=== PATIENT | male | born 1945 ===

== ENCOUNTER 2024-12-12 09:27 | Inpatient (IN) | payer MEDICARE, SELFPAY ==
[2024-12-12] VITALS (14 sets, daily range): BP systolic 109–140; BP diastolic 62–95; PULSE 53–100; RESP 14–30; TEMP 36.2–38.6; O2SAT 88–98; BMI 28.5
--- NOTE | ~2024-12-12 | XR_ITS ---
EXAMINATION: XR CHEST 2 VIEWS HISTORY: altered mental status COMPARISON: There are no prior studies for comparison. FINDINGS: AP and lateral views of the chest are submitted. The lungs are expanded and clear. There is no pleural effusion, pneumothorax, or pulmonary vascular congestion. The heart is normal in size. There is mild degenerative disc disease of the spine. XR/XR chest 2V IMPRESSION: Clear lungs. Electronically signed by: Marbin Harrison MD 12/12/2024 10:43 AM [facility]
--- NOTE | ~2024-12-12 | CT_ITS ---
EXAMINATION: CT HEAD WITHOUT CONTRAST CLINICAL INFORMATION: AMS COMPARISON: None available. TECHNIQUE: Contiguous axial imaging was performed from the skull base to vertex without intravenous administration of contrast. This CT examination was performed using dose optimization techniques as appropriate, variously including the following: *Automated exposure control *Adjustment of mA and/or kV according to patient size (this includes techniques or standardized protocols for targeted exams where dose is matched to indication/reason for exam; i.e. extremities or head) *Use of iterative reconstruction technique DLP: 751 mGy-cm FINDINGS: No acute intracranial hemorrhage, mass effect, midline shift, hydrocephalus or herniation. Meraz-white matter differentiation is normal. Prominence of the extra-axial CSF spaces cerebral sulci and ventricles likely central volume loss. Sellar/suprasellar region demonstrated no gross masses. Craniocervical junction is intact. Posterior cranial fossa contents demonstrated no acute intracranial hemorrhage or mass effect. Old lacunar infarcts in the basal ganglia. Mild patchy deep periventricular white matter hypodensities in the centrum semiovale and henao radiata. Calcified plaques in the cavernous segments both ICAs. The bony calvarium is intact. There is a polypoid mucosal thickening, right maxillary sinus and right ethmoid air cells.. Small retention cysts versus polyp in the right sphenoid sinus. Tympanic cavities and mastoid air cells are aerated. No gross masses or fluid collections in the intraconal or extraconal compartments of the orbits. CT/CT head/brain wo IV con IMPRESSION: No acute intracranial hemorrhage. Global cerebral atrophy. Small vessel occlusive disease. Acute stroke/nonhemorrhagic ischemia cannot be excluded. If clinical concern recommend non-IV contrast MRI brain. Polypoid right-sided paranasal sinus disease. Electronically signed by: Brayden Krishnamurthy MD 12/12/2024 11:05 AM EST
--- NOTE | 2024-12-12 09:35 | ED_ITS ---
HPI - General Adult General Chief complaint: Altered Mental Status Stated complaint: ALTERED,WARM,?UTI FROM CORRECTION PER EMS Time Seen by Provider: 12/12/24 09:34 Source: patient, EMS, RN notes reviewed and old records reviewed Mode of arrival: EMS Limitations: altered mental status History of Present Illness ED Provider: Edy GRULLON narrative: Patient is a 79-year-old male with history of schizoaffective disorder, bipolar disorder, PTSD, hypothyroidism presenting to the ED via EMS for reported weakness, confusion, and inability to stand. EMS noted foul smelling urine, and that patient felt warm to touch. Patient denies any complaints but is poor historian. MD complaint: weakness Treatments prior to arrival: none Related Data Allergies Allergy/AdvReac Type Severity Reaction Status Date / Time No Known Allergies Allergy Verified 12/12/24 09:50 Review of Systems 2 Review of Systems: As per HPI Yes all other systems are reviewed and are negative Constitutional: Constitutional: Reports as per HPI Neurologic: Reports confusion Psychiatric: Psychiatric: Reports confusion PMFSH Social History Social History Advance Directives: No Advance Directives Information Provided: Yes Physical Exam ED Vital Signs: Vital Signs - 24 hr 12/12/24 09:41 12/12/24 09:47 12/12/24 10:12 Temperature 101.3 F H 101.5 F H Pulse Rate 81 78 Respiratory Rate 30 H 16 Blood Pressure 113/72 126/86 Pulse Oximetry 93 93 Oxygen Delivery Method Room Air Room Air 12/12/24 12:00 12/12/24 12:15 12/12/24 12:46 Temperature 98.8 F 98.9 F 98.3 F Pulse Rate 72 75 62 Respiratory Rate 24 H 15 20 Blood Pressure 126/88 132/88 109/73 Pulse Oximetry 95 96 95 Oxygen Delivery Method Room Air Room Air Room Air 12/12/24 13:02 12/12/24 13:11 Temperature 97.5 F Pulse Rate 66 61 Respiratory Rate 22 H Blood Pressure 113/75 Pulse Oximetry 88 L 97 Oxygen Delivery Method Room Air Room Air BMI result Body Mass Index 28.5 Vital signs have been reviewed and appear to be correct. Blood pressure normal. Heart rate normal. Respiratory rate normal. Temperature febrile. Oxygen saturation slightly hypoxic on room air. Const General: cooperative, no acute distress, alert, awake and confusion Orientation/consciousness: oriented to person, oriented to place, oriented to time, patient oriented x3, confusion and Other orientation findings Limitations: altered mental status HENMT Head: Yes normocephalic and Yes atraumatic Ears: external ears normal General nose exam: Normal external nose present Face and sinus: Yes face symmetric Mouth: oropharynx normal and moist mucous membranes Throat: Yes uvula midline Eyes Pupils: Equal, round and reactive pupils present Neck Neck: Yes normal visual inspection and Yes supple Resp Effort & Inspection: normal respiratory effort and able to speak in complete sentences Auscultation: clear to auscultation bilaterally Cardio Rate: regular rate Rhythm: regular rhythm Heart sounds: S1 normal heart sound present and S2 normal heart sound present GI Palpation (GI): Soft to palpation and nontender Auscultation: normoactive bowel sounds General: Yes no CVA tenderness Back/Spine/Pelvis Back: no CVA tenderness Skin General skin exam: elasticity normal and turgor normal Neuro General: oriented to person, oriented to place, oriented to time, patient oriented x3, moves all extremities, no focal motor deficits, CN's II-XI intact bilaterally and confusion Cranial nerves: Yes Equal, round and reactive pupils present Cognition (Neuro): normal cognition Extrem General: Yes full ROM, Yes no pedal edema and Yes no calf tenderness Psych Mental Status: mental status grossly normal Affect: normal affect Thought process: Flight of ideas present Medications Administered Discontinued Medications Generic Name Dose Route Start Last Admin Trade Name Prestonq PRN Reason Stop Dose Admin Acetaminophen 650 mg 12/12/24 11:18 12/12/24 11:35 Acetaminophen 325 Mg Tablet PO 12/12/24 11:19 650 mg ONCE ONE Administration Ceftriaxone Sodium 1 gm 12/12/24 09:48 12/12/24 10:01 Ceftriaxone Sodium 1 Gm Vial IVPUSH 12/12/24 09:49 1 gm ONCE ONE Administration Dexamethasone Sodium Phosphate 6 mg 12/12/24 11:18 12/12/24 11:35 Dexamethasone Sod Phosphate 4 Mg/Ml Vial IVPUSH 12/12/24 11:19 6 mg ONCE ONE Administration Lactated Ringer's 1,000 mls @ 999 mls/hr 12/12/24 11:30 12/12/24 12:45 Lr IV 12/12/24 12:30 Infused .Q1H1M ALTON Infusion Medical Decision Making Medical Decision Making MDM Narrative: Patient is a 79-year-old male with history of schizoaffective disorder, bipolar disorder, PTSD, hypothyroidism presenting to the ED via EMS for reported weakness, confusion, and inability to stand. On exam patient is awake, A+Ox3, VS WNL, febrile, physical exam findings as above. Given reported symptoms and physical exam findings, initial differential includes but is not limited to UTI, viral illness, covid, flu, pneumonia, electrolyte abnormality. Less likely CVA/ICH but will obtain CT head. Viral serology positive for Covid. Labs notable for slight leukocytosis, elevated lactic, no significant electrolyte abnormalities, slightly elevated troponin, will obtain repeat. CT head notable for no acute ICH, small vessel occlusive disease. Low suspicion for stroke, no focal neurological deficits. CXR notable for no evidence of pneumonia. My interpretation is in agreement with the radiologist's interpretation. Patient maintaining oxygen saturation on room air. Will reassess need for admission after repeat lactic and troponin. No delta on repeat troponin, repeat lactic 2. Case discussed with Dr. Owens who accepts admission. Differential Diagnosis Differential Diagnoses: The differential diagnosis associated with the presentation includes As per [facility] Admission/Observation Consideration of admission/observation: Escalation of care including admission/observation considered Lab Data [facility] Lab Attestation statement: I reviewed the patient's lab results. As per [facility] 12/12/24 09:57 12/12/24 09:59 Labs: Lab Results 12/12/24 12/12/24 12/12/24 Range/Units 09:57 09:59 10:13 WBC 10.9 H (4.8-10.8) X10*3/uL RBC 3.82 L (4.60-5.80) X10*6/uL Hgb 12.6 L (14.0-18.0) g/dl Hct 35.6 L (42.0-52.0) % MCV 93.2 (80.0-98.0) fL MCH 33.0 (27.0-33.0) pg MCHC 35.4 (31.0-36.0) g/dl RDW 13.2 (11.0-16.0) % Plt Count 187 (160-400) X10*3/uL MPV 10.6 (9.4-12.4) fL Immature Gran % (Auto) 0.5 H (0.0-0.4) % Neut % (Auto) 71.1 (45-73) % Lymph % (Auto) 13.8 L (20-40) % Conway % (Auto) 13.1 H (2-11) % Eos % (Auto) 0.5 (0-4) % Baso % (Auto) 1.0 (0-2) % Lymph # (Auto) 1.5 (1.2-4.9) X10*3/uL Conway # (Auto) 1.4 H (0.1-1.2) X10*3/uL Eos # (Auto) 0.1 (0.0-0.4) X10*3/uL Baso # (Auto) 0.1 (0.0-0.2) X10*3/uL Abs Immat Gran (auto) 0.06 H (0.00-0.03) X10*3/uL Absolute Neuts (auto) 7.7 (2.0-8.3) x10*3/uL Absolute Nucleated RBC 0.000 (0.0-0.012) X10*3/uL Nucleated RBC % (auto) 0.0 (0.0-0.2) /100WBC PT 11.9 (10.9-12.4) SEC INR 1.0 (0.9-1.1) Sodium 140 (135-145) mmol/L Potassium 4.7 (3.3-5.1) mmol/L Chloride 110 H (96-108) mmol/L Carbon Dioxide 22 (22-29) mmol/L Anion Gap 13 (12-20) BUN 17 H (9-16) mg/dL Creatinine 1.08 (0.5-1.4) mg/dL Estim Creat Clear Calc 64.6 Estimated GFR > 60 Random Glucose 126 H (60-115) mg/dL Lactic Acid 2.5 H* (0.5-2.0) mmol/L Lactic Acid F/U @ 2Hr (0.5-2.0) mmol/L Calcium 8.7 (8.4-10.2) mg/dL Magnesium 1.7 (1.6-2.6) mg/dL Total Bilirubin 0.3 (0.0-1.0) mg/dL AST 62 H (5-37) U/L ALT 23 (0-40) U/L Alkaline Phosphatase 54 (39-117) U/L Troponin I High Sens 13.7 (<3.5-35.0) ng/L Total Protein 7.4 (6.5-8.0) g/dL Albumin 3.5 (3.5-5.0) g/dL Urine Color Yellow Urine Appearance Clear Urine pH 7.0 (5.0-9.0) Ur Specific [place] 1.015 (1.005-1.025) Urine Protein Trace (Neg-Trace) mg/dL Urine Glucose (UA) Negative (Negative) mg/dL Urine Ketones Negative (Negative) mg/dL Urine Blood Negative (Negative) Urine Nitrite Negative (Negative) Ur Leukocyte Esterase Negative (Negative) Urine Opiates Screen Not Detected (Not Detect) Ur Buprenorphine Scrn Not Detected (Not Detect) ng/mL Ur Oxycodone Screen Not Detected (Not Detect) ng/mL Urine Methadone Screen Not Detected (Not Detect) ng/mL Urine Fentanyl Screen Not Detected (Not Detect) Ur Barbiturates Screen Not Detected (Not Detect) Ur Phencyclidine Scrn Not Detected (Not Detect) Ur Amphetamines Screen Not Detected (Not Detect) U Benzodiazepines Scrn Not Detected (Not Detect) Urine Cocaine Screen Not Detected (Not Detect) U Marijuana (THC) Screen Not Detected (Not Detect) Ethyl Alcohol < 10 mg/dL Influenza Type A (PCR) NEGATIVE (Negative) Influenza Type B (PCR) NEGATIVE (Negative) RSV RNA Qual (PCR) NEGATIVE (Negative) SARS-CoV-2 RNA (RT-PCR) POSITIVE A (Negative) 12/12/24 Range/Units 12:16 WBC (4.8-10.8) X10*3/uL RBC (4.60-5.80) X10*6/uL Hgb (14.0-18.0) g/dl Hct (42.0-52.0) % MCV (80.0-98.0) fL MCH (27.0-33.0) pg MCHC (31.0-36.0) g/dl RDW (11.0-16.0) % Plt Count (160-400) X10*3/uL MPV (9.4-12.4) fL Immature Gran % (Auto) (0.0-0.4) % Neut % (Auto) (45-73) % Lymph % (Auto) (20-40) % Conway % (Auto) (2-11) % Eos % (Auto) (0-4) % Baso % (Auto) (0-2) % Lymph # (Auto) (1.2-4.9) X10*3/uL Conway # (Auto) (0.1-1.2) X10*3/uL Eos # (Auto) (0.0-0.4) X10*3/uL Baso # (Auto) (0.0-0.2) X10*3/uL Abs Immat Gran (auto) (0.00-0.03) X10*3/uL Absolute Neuts (auto) (2.0-8.3) x10*3/uL Absolute Nucleated RBC (0.0-0.012) X10*3/uL Nucleated RBC % (auto) (0.0-0.2) /100WBC PT (10.9-12.4) SEC INR (0.9-1.1) Sodium (135-145) mmol/L Potassium (3.3-5.1) mmol/L Chloride (96-108) mmol/L Carbon Dioxide (22-29) mmol/L Anion Gap (12-20) BUN (9-16) mg/dL Creatinine (0.5-1.4) mg/dL Estim Creat Clear Calc Estimated GFR Random Glucose (60-115) mg/dL Lactic Acid (0.5-2.0) mmol/L Lactic Acid F/U @ 2Hr 2.0 (0.5-2.0) mmol/L Calcium (8.4-10.2) mg/dL Magnesium (1.6-2.6) mg/dL Total Bilirubin (0.0-1.0) mg/dL AST (5-37) U/L ALT (0-40) U/L Alkaline Phosphatase (39-117) U/L Troponin I High Sens 17.0 (<3.5-35.0) ng/L Total Protein (6.5-8.0) g/dL Albumin (3.5-5.0) g/dL Urine Color Urine Appearance Urine pH (5.0-9.0) Ur Specific [place] (1.005-1.025) Urine Protein (Neg-Trace) mg/dL Urine Glucose (UA) (Negative) mg/dL Urine Ketones (Negative) mg/dL Urine Blood (Negative) Urine Nitrite (Negative) Ur Leukocyte Esterase (Negative) Urine Opiates Screen (Not Detect) Ur Buprenorphine Scrn (Not Detect) ng/mL Ur Oxycodone Screen (Not Detect) ng/mL Urine Methadone Screen (Not Detect) ng/mL Urine Fentanyl Screen (Not Detect) Ur Barbiturates Screen (Not Detect) Ur Phencyclidine Scrn (Not Detect) Ur Amphetamines Screen (Not Detect) U Benzodiazepines Scrn (Not Detect) Urine Cocaine Screen (Not Detect) U Marijuana (THC) Screen (Not Detect) Ethyl Alcohol mg/dL Influenza Type A (PCR) (Negative) Influenza Type B (PCR) (Negative) RSV RNA Qual (PCR) (Negative) SARS-CoV-2 RNA (RT-PCR) (Negative) Independent Interpretation I performed an independent interpretation of an: Plain X-Ray and CT Scan Interpretation: CT head notable for no acute ICH, small vessel occlusive disease. Low suspicion for stroke, no focal neurological deficits. CXR notable for no evidence of pneumonia. Radiology Impression Discussion of test interpretation with radiology: I have reviewed the radiologist's reading. Radiologist Impression: XR/XR chest 2V IMPRESSION: Clear lungs. CT/CT head/brain wo IV con IMPRESSION: No acute intracranial hemorrhage. Global cerebral atrophy. Small vessel occlusive disease. Acute stroke/nonhemorrhagic ischemia cannot be excluded. If clinical concern recommend non-IV contrast MRI brain. Polypoid right-sided paranasal sinus disease. External Record Review External record reviewed: Inpatient record, Office record and Outpatient record Prescription Management I considered prescription management with: Other Discharge Plan Discharge Patient Disposition: Admitted As Inpatient Print Language: Ukrainian
--- NOTE | 2024-12-12 09:36 | ECG_ITS ---
Test Reason : alt mental status Blood Pressure : */* mmHG Vent. Rate : 76 BPM Atrial Rate : 76 BPM P-R Int : 136 ms QRS Dur : 92 ms QT Int : 378 ms P-R-T Axes : 36 -32 17 degrees QTcB Int : 425 ms Normal sinus rhythm Left axis deviation Inferior infarct , age undetermined Abnormal ECG No previous ECGs available Referred By: Noemi Snow Electronically Signed By: EMMANUEL CASTANEDA MD
[2024-12-12] MEDS: cefTRIAXone sodium 1 GM VIAL IVPUSH (10:01)
[2024-12-12 10:03] LABS: MANUAL DIFF FLAG NO
--- NOTE | 2024-12-12 10:03 | PC.NURSE ---
Per Noemi JOSHI, defer on IVF at this time. Awaiting lactic prior to fluid administration.
[2024-12-12 10:08] LABS: Basophils Absolute Auto 0.1 X10*3/uL (0.0-0.2); Eosinophils Absolute Auto 0.1 X10*3/uL (0.0-0.4); Eosinophils Percent Auto 0.5 % (0-4); Hematocrit 35.6 % (42.0-52.0); Hemoglobin 12.6 g/dl (14.0-18.0); Imm Gran Abs Auto 0.06 X10*3/uL (0.00-0.03); Imm Gran Pct Auto 0.5 % (0.0-0.4); Lymphocytes Absolute Auto 1.5 X10*3/uL (1.2-4.9); Lymphocytes Percent Auto 13.8 % (20-40); Mean Corpuscular HGB Conc 35.4 g/dl (31.0-36.0); Mean Corpuscular Volume 93.2 fL (80.0-98.0); Mean Platelet Volume 10.6 fL (9.4-12.4); Monocytes Absolute Auto 1.4 X10*3/uL (0.1-1.2); Monocytes Percent Auto 13.1 % (2-11); Neutrophils Absolute Auto 7.7 x10*3/uL (2.0-8.3); Neutrophils Percent Auto 71.1 % (45-73); Platelet Count 187 X10*3/uL (160-400); Red Blood Count 3.82 X10*6/uL (4.60-5.80); Red Cell Distribution Width 13.2 % (11.0-16.0); White Blood Count 10.9 X10*3/uL (4.8-10.8)
--- NOTE | 2024-12-12 10:12 | PC.NURSE ---
Pt straight catheterized for urine sample, tolerated well.
[2024-12-12 10:18] LABS: Prothrombin Time 11.9 SEC (10.9-12.4)
[2024-12-12 10:23] LABS: Ethanol < 10 mg/dL
[2024-12-12 10:26] LABS: Lactic Acid 2.5 mmol/L (0.5-2.0)
[2024-12-12 10:27] LABS: Appearance Urine Clear; Color Urine Yellow; Glucose Urine UA Negative (Negative); Leukocyte Esterase Urine Negative (Negative); Nitrite Urine Negative (Negative); Specific Gravity - Urine 1.015 (1.005-1.025); Urine Blood Negative (Negative); Urine Ketones Negative (Negative); Urine Protein Trace mg/dL (Neg-Trace)
[2024-12-12 10:28] LABS: Alanine Aminotransferase 23 U/L (0-40); Albumin Level 3.5 g/dL (3.5-5.0); Alkaline Phosphatase 54 U/L (39-117); Anion Gap 13 (12-20); Aspartate Amino Transferase 62 U/L (5-37); Bilirubin Total 0.3 mg/dL (0.0-1.0); Blood Urea Nitrogen 17 mg/dL (9-16); Calcium 8.7 mg/dL (8.4-10.2); Carbon Dioxide 22 mmol/L (22-29); Chloride 110 mmol/L (96-108); Creatinine Clr Calc Pharmacy 64.6; Estimated Glomerular Filt Rate > 60; Glucose Random 126 mg/dL (60-115); Magnesium 1.7 mg/dL (1.6-2.6); Potassium 4.7 mmol/L (3.3-5.1); Sodium 140 mmol/L (135-145); Total Protein 7.4 g/dL (6.5-8.0)
--- NOTE | 2024-12-12 10:31 | MHC.EDTECH ---
EKG delayed- pt off the unit
[2024-12-12 10:36] LABS: Troponin-I High Sensitivity 13.7 ng/L (<3.5-35.0)
[2024-12-12 10:39] LABS: Amphetamine Screen Urine Not Detected (Not Detect); Barbiturates, Urine Not Detected (Not Detect); Benzodiazepines Screen Urine Not Detected (Not Detect); Buprenorphine Scr Not Detected (Not Detect); Cannabinoid Screen Urine Not Detected (Not Detect); Cocaine Screen Urine Not Detected (Not Detect); Fentanyl, urine Not Detected (Not Detect); Methadone Screen, Urine Not Detected (Not Detect); Opiate Screen Urine Not Detected (Not Detect); Oxycodone Screen Urine Not Detected (Not Detect); Phencyclidine Screen Urine Not Detected (Not Detect)
--- NOTE | 2024-12-12 10:43 | PC.NURSE ---
Lactic 2.5, Noemi JOSHI made aware. Awaiting IVF orders. Pt received 250cc NS by EMS CERTIFIED SURGICAL ASSISTANT.
[2024-12-12 10:44] LABS: Influenza A PCR NEGATIVE (Negative); Influenza B PCR NEGATIVE (Negative); Resp Syncy Virus RNA Qual PCR NEGATIVE (Negative); SARS COV2 PCR INHOUSE POSITIVE (Negative)
[2024-12-12] MEDS: dexAMETHasone sod phosphate 4 MG/ML VIAL 6 MG IVPUSH (11:35)
[2024-12-12] MEDS: Acetaminophen 325 MG TABLET 650 MG PO (11:35)
[2024-12-12] MEDS: Lactated Ringers 1,000 ML 999 ML IV (11:36)
--- NOTE | 2024-12-12 11:42 | PC.NURSE ---
Assumed care of this patient at 1100, patient found half off the stretcher, repositioned, medicated for fever w/ tylenol and fluids hung. Denies pain at this time.
[2024-12-12 12:01] LABS: Reflex Lactate? Lactic Acid Added
--- NOTE | 2024-12-12 12:06 | MHC.EDTECH ---
per provider pt took off oxygen, 97% saturation without oxygen
--- OUTSIDE RECORDS SUMMARY | 2024-12-12 12:50 | XMS_ITS ---
Author Organization [facility] Address [address] [place] [address] Care Team Providers Care Teletype Adjuster Name Role Phone CYRIL RAZO Primary Care Provider [phone] REASON FOR VISIT CCM Encounters Encounter Location Date Provider Diagnosis [facility] [address] [facility] [address] [place] [address] 10/05/2024 CYRIL RAZO PLAN OF TREATMENT No Information Progress Notes * SMILEY RADER SDOB:[birth year] (79 yo M)Acc No.[id number]:10/05/2024 Patient:??SMILEY RADER S :1945?Age:79 Y?Sex:Berta gunn Address:[address] [place] [address] [place] [address] * true * Date:??
--- OUTSIDE RECORDS SUMMARY | 2024-12-12 12:50 | XMS_ITS | Encounter Summary ---
Author Organization [facility] Address [address] [place] [address] Care Team Providers Care Freight Associate Name Role Phone Jean Paul Lewis MD Primary Care Provider [phone] Encounter Details Date Type Department Care Team (Late st Contact Info) Description 11/01/2024 Lab Requisition [facility] - Main Lab [address] [facility] [place] [address] Noemi Miller PA [address] [facility] [place] [place] [address] Hypothyroidism, unspecified Social History Tobacco Use Types Packs/Day Years Used Date Smoking Tobacco: Never Smokeless Tobacco: Never Passive Exposure Comments:un known Interpersonal Safety Answer Date Record ed Physical Abuse 10/29/2024 Verbal Abuse 10/29/2024 Sex and Gender Information Value Date Recorded Sex Assigned at Not on file Legal Sex Male 6:51 PM EST Gender Identity Not on file Sexual Orientation Not on file documented as of this encounter Functional Status * Are you deaf or do you have serious difficulty hearing? Answer Date of Assessment Author Yes 10/29/2024 8:44 AM Arlyn Paieg RN * Are you blind or do you have serious difficulty seeing, even when wearing glasses? Answer Date of Assessment Author No 10/29/2024 8:44 AM Arlyn Paige RN * Do you have serious difficulty walking or climbing stairs? Answer Date of Assessment Author Yes 10/29/2024 8:44 AM EST Prasanth, Ch rissea, RN * Do you have serious difficulty dressing or bathing? Answer Date of Assessment Author Yes 10/29/2024 8:44 AM Arlyn Paige RN * Because of a physical, mental, or emotional condition, do you have serious difficulty doing errandsalone such as visiting the doctor? Answer Date of Assessment Author Yes 10/29/2024 8:44 AM Arlyn Paige RN documented as of this encounter Mental Status * Because of a physical, mental, or emotional condition, do you have serious difficulty concentrating, remembering, or making decisions? (5 years old or older) Answer Entry Date Author Yes 10/29/2024 8:44 AM Arlyn Paige RN documented in this encounter Plan of Treatment Not on file documented as of this encounter Procedures Procedure Name Priority Date/Time Associated Diagnosis Comments COMPLETE BLOOD COUNT Routine 11/01/2024 7:01 AM EST Hypothyroidism, unspecified THYROID STIMULATING HORMONE Routine 11/01/2024 7:01 AM EST Hypothyroidism, unspecified FOLATE Routine 11/01/2024 7:01 AM EST Hypothyroidism, unspecified VITAMIN B12 Routine 11/01/2024 7:01 AM EST Hypothyroidism, unspecified COMPREHENSIVE METABOLIC PANEL Routine 11/01/2024 7:01 AM EST Hypothyroidism, unspecified documented in this encounter Results * (ABNORMAL) Folate (11/01/2024 7:01 AM EST) Folate 19.1(H) 2.8 - 17.0 ng/ml LAB CHEMISTRY METHOD 11/01/2024 11:35 AM EST [facility] Blood Venous blood specimen / Unknown Venipuncture / Unknown 11/01/2024 7:01 AM EST 11/01/2024 9:58 AM EST us Noemi GORMAN LAB BLOOD ORDERABLES Final Resu lt [facility] [address] [place] [address], [place] [phone] * Vitamin B12 (11/01/2024 7:01 AM EST) [facility] Vitamin B-12 681 250 - 900 pcg/mL LAB CHEMISTRY METHOD 11/01/2024 11:35 AM EST [facility] Blood Venous blood specimen / Unknown Venipuncture / Unknown 11/01/2024 7:01 AM EST 11/01/2024 9:58 AM EST us Noemi GORMAN LAB BLOOD ORDERABLES Final Resu lt Performing Organization Address City/[facility]/ZIP Co de Phone Number [facility] [address] [place] [address], [place] [phone] * (ABNORMAL) Thyroid stimulating hormone (11/01/2024 7:01 AM EST) [facility] TSH 18.58(H) 0.40 - 4.00 mcIU/mL LAB CHEMISTRY METHOD 11/01/2024 11:18 AM EST [facility] Blood Venous blood specimen / Unknown Venipuncture / Unknown 11/01/2024 7:01 AM EST 11/01/2024 9:58 AM EST us Noemi GORMAN LAB BLOOD ORDERABLES Final Resu lt [facility] [address] [place] [address], [place] [phone] * (ABNORMAL) Comprehensive metabolic panel (11/01/2024 7:01 AM EST) [facility] Sodium 140 133 - 145 mmol/L LAB CHEMISTRY METHOD 11/01/2024 11:11 AM EST [facility] Potassium 4.8 3.5 - 5.5 mmol/L LAB CHEMISTRY METHOD 11/01/2024 11:11 AM EST [facility] Chloride 105 96 - 110 mmol/L LAB CHEMISTRY METHOD 11/01/2024 11:11 AM [facility] CO2 30 21 - 32 mmol/L LAB CHEMISTRY METHOD 11/01/2024 11:11 AM [facility] Anion Gap 5 3 - 11 LAB CHEMISTRY METHOD 11/01/2024 11:11 AM [facility] Glucose 106(H) 70 - 100 mg/dL LAB CHEMISTRY METHOD 11/01/2024 11:11 AM [facility] BUN 15 5 - 25 mg/dL LAB CHEMISTRY METHOD 11/01/2024 11:11 AM [facility] Creatinine 1.18 0.70 - 1.30 mg/dL LAB CHEMISTRY METHOD 11/01/2024 11:11 AM [facility] eGFR 64 >=60 mL/min/1. 73m2 LAB CHEMISTRY METHOD 11/01/2024 11:11 AM [facility] Comment:Calculation based on the??Chronic Kidney Disease Epidemiology Collaboration (CKD-EPI) equation refit??without adjustment for race. BUN/Creatinine Ratio 12.7 LAB CHEMISTRY METHOD 11/01/2024 11:11 AM [facility] Calcium 9.0 8.5 - 10.5 mg/dL LAB CHEMISTRY METHOD 11/01/2024 11:11 AM [facility] AST (SGOT) 25 10 - 42 unit/L LAB CHEMISTRY METHOD 11/01/2024 11:11 AM [facility] ALT (SGPT) 34 10 - 60 unit/L LAB CHEMISTRY METHOD 11/01/2024 11:11 AM [facility] Alkaline Phosphatase 75 42 - 121 unit/L LAB CHEMISTRY METHOD 11/01/2024 11:11 AM [facility] Total Protein 6.8 6.0 - 8.0 g/dL LAB CHEMISTRY METHOD 11/01/2024 11:11 AM [facility] Albumin 3.0(L) 3.2 - 5.0 g/dL LAB CHEMISTRY METHOD 11/01/2024 11:11 AM [facility] Total Bilirubin 0.3 0.0 - 1.4 mg/dL LAB CHEMISTRY METHOD 11/01/2024 11:11 AM [facility] Blood Venous blood specimen / Unknown Venipuncture / Unknown 11/01/2024 7:01 AM EST 11/01/2024 9:58 AM EST us Noemi GORMAN LAB BLOOD ORDERABLES Final Resu lt [facility] [address] [place] [address], [place] [phone] * (ABNORMAL) Complete blood count (11/01/2024 7:01 AM EST) WBC 7.4 4.8 - 10.8 K/mcL LAB HEMETOLOGY METHOD 11/01/2024 10:22 AM [facility] RBC 3.90(L) 4.50 - 5.50 M/mcL LAB HEMETOLOGY METHOD 11/01/2024 10:22 AM [facility] Hemoglobin 12.7(L) 13.5 - 17.5 g/dL LAB HEMETOLOGY METHOD 11/01/2024 10:22 AM [facility] Hematocrit 37.7(L) 42.0 - 54.0 % LAB HEMETOLOGY METHOD 11/01/2024 10:22 AM [facility] MCV 97.2 79.0 - 98.0 FL LAB HEMETOLOGY METHOD 11/01/2024 10:22 AM [facility] MCH 32.7(H) 27.0 - 32.0 pcg LAB HEMETOLOGY METHOD 11/01/2024 10:22 AM [facility] MCHC 33.7 32.0 - 37.0 g/dL LAB HEMETOLOGY METHOD 11/01/2024 10:22 AM EST [facility] RDW 12.9 11.0 - 15.0 % LAB HEMETOLOGY METHOD 11/01/2024 10:22 AM EST [facility] Platelets 236 130 - 400 K/mcL LAB HEMETOLOGY METHOD 11/01/2024 10:22 AM [facility] MPV 11.0 7.0 - 11.0 FL LAB HEMETOLOGY METHOD 11/01/2024 10:22 AM [facility] NRBC 0.0 <1.0 % LAB HEMETOLOGY METHOD 11/01/2024 10:22 AM [facility] NRBC Absolute 0.00 <0.10 K/mcL LAB HEMETOLOGY METHOD 11/01/2024 10:22 AM [facility] Blood Venous blood specimen / Unknown Venipuncture / Unknown 11/01/2024 7:01 AM EST 11/01/2024 9:58 AM EST us Noemi GORMAN LAB BLOOD ORDERABLES Final Resu lt [facility] [address] [place] [address], documented in this encounter Visit Diagnoses Diagnosis Hypothyroidism, unspecified documented in this encounter Care Teams Freight Associate Relationship Specialty Start Date End Date Jean Paul Lewis MD [address] [address] PCP - General 09/08/09 documented as of this encounter
--- OUTSIDE RECORDS SUMMARY | 2024-12-12 12:50 | XMS_ITS ---
Author Organization [facility] Address [address] [place] [address] Care Team Providers Care Warp Tying Machine Knotter Name Role Phone CYRIL RAZO Primary Care Provider MARIANNA CHAN Unavailable [phone] REASON FOR VISIT VNA Encounters Encounter Location Date Provider Diagnosis [facility] [address] [place] [address] 10/25/2024 MARIANNA CHAN PLAN OF TREATMENT No Information Progress Notes * SMILEY RADER SDOB:[birth year] (79 yo M)Acc No.[id number]:10/25/2024 Patient:??SMILEY RADER S :1945?Age:79 Y?Sex:Berta gunn Address:[address] [place] [address] [place] [address] * true * Date:??
--- OUTSIDE RECORDS SUMMARY | 2024-12-12 12:50 | XMS_ITS | Encounter Summary ---
Author Organization [facility] Address [address] [place] [address] Care Team Providers Care Loop Puller Name Role Phone Jean Paul Lewis MD Primary Care Provider [phone] Encounter Details Date Type Department Care Team (Late st Contact Info) Description 11/07/2024 Lab Requisition [facility] - Main Lab [address] [facility] [place] [address] Sravan Melchor MD [address] [place] [address] Hypothyroidism, unspecified Social History Tobacco Use Types [...] 10/29/2024 8:44 AM Arlyn Paige RN * Are you blind or do [...] on file documented as of this encounter Visit Diagnoses Diagnosis Hypothyroidism, unspecified documented in this encounter Care Teams Loop Puller Relationship Specialty Start Date End Date Jean Paul Lewis MD [address] [place] [phone] PCP - General 09/08/09 documented as of this encounter
--- OUTSIDE RECORDS SUMMARY | 2024-12-12 12:51 | XMS_ITS | Clinical Summary ---
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 the time period is included. WBC 11.7(H) 4.8 - 10.8 K/mcL LAB HEMETOLOGY METHOD 10/28/2024 9:11 AM [facility] RBC 4.10(L) 4.50 - 5.50 M/mcL LAB HEMETOLOGY METHOD 10/28/2024 9:11 AM [facility] Hemoglobin 13.2(L) 13.5 - 17.5 g/dL LAB HEMETOLOGY METHOD 10/28/2024 9:11 AM [facility] Hematocrit 39.3(L) 42.0 - 54.0 % LAB HEMETOLOGY METHOD 10/28/2024 9:11 AM [facility] MCV 95.9 79.0 - 98.0 FL LAB HEMETOLOGY METHOD 10/28/2024 9:11 AM [facility] MCH 32.2(H) 27.0 - 32.0 pcg LAB HEMETOLOGY METHOD 10/28/2024 9:11 AM [facility] MCHC 33.6 32.0 - 37.0 g/dL LAB HEMETOLOGY METHOD 10/28/2024 9:11 AM [facility] RDW 13.0 11.0 - 15.0 % LAB HEMETOLOGY METHOD 10/28/2024 9:11 AM [facility] Platelets 177 130 - 400 K/mcL LAB HEMETOLOGY METHOD 10/28/2024 9:11 AM [facility] MPV 11.2(H) 7.0 - 11.0 FL LAB HEMETOLOGY METHOD 10/28/2024 9:11 AM [facility] NRBC 0.0 <1.0 % LAB HEMETOLOGY METHOD 10/28/2024 9:11 AM [facility] NRBC Absolute 0.00 <0.10 K/mcL LAB HEMETOLOGY METHOD 10/28/2024 9:11 AM [facility] Neutrophils Relative 72.1 % LAB HEMETOLOGY METHOD 10/28/2024 9:11 AM [facility] Comment:This is an appended report. These results have been appended to a previously preliminary verified report. Lymphocytes Relative 12.8 % LAB HEMETOLOGY METHOD 10/28/2024 9:11 AM [facility] Comment:This is an appended report. These results have been appended to a previously preliminary verified report. Monocytes Relative 14.1 % LAB HEMETOLOGY METHOD 10/28/2024 9:11 AM [facility] Comment:This is an appended report. These results have been appended to a previously preliminary verified report. Eosinophils Relative 0.1 % LAB HEMETOLOGY METHOD 10/28/2024 9:11 AM [facility] Comment:This is an appended report. These results have been appended to a previously preliminary verified report. Basophils Relative 0.5 % LAB HEMETOLOGY METHOD 10/28/2024 9:11 AM [facility] Comment:This is an appended report. These results have been appended to a previously preliminary verified report. Immature Granulocytes Relative 0.4 % LAB HEMETOLOGY METHOD 10/28/2024 9:11 AM [facility] Comment:This is an appended report. These results have been appended to a previously preliminary verified report. Neutrophils Absolute 8.44(H) 1.50 - 7.00 K/mcL LAB HEMETOLOGY METHOD 10/28/2024 9:11 AM [facility] Comment:This is an appended report. These results have been appended to a previously preliminary verified report. Lymphocytes Absolute 1.50 1.00 - 5.00 K/mcL LAB HEMETOLOGY METHOD 10/28/2024 9:11 AM EST [facility] Comment:This is an appended report. These results have been appended to a previously preliminary verified report. Monocytes Absolute 1.65(H) 0.20 - 1.00 K/mcL LAB HEMETOLOGY METHOD 10/28/2024 9:11 AM EST [facility] Comment:This is an appended report. These results have been appended to a previously preliminary verified report. Eosinophils Absolute 0.01 0.00 - 0.50 K/[facility] LAB HEMETOLOGY METHOD 10/28/2024 9:11 AM EST [facility] Comment:This is an appended report. These results have been appended to a previously preliminary verified report. Basophils Absolute 0.06 0.00 - 0.20 K/[facility] LAB HEMETOLOGY METHOD 10/28/2024 9:11 AM EST [facility] Comment:This is an appended report. These results have been appended to a previously preliminary verified report. Immature Granulocytes Absolute 0.05(H) 0.00 - 0.03 K/[facility] LAB HEMETOLOGY METHOD 10/28/2024 9:11 AM EST [facility] Comment:This is an appended report. These results have been appended to a previously preliminary verified report. Blood Venous blood specimen / Unknown Venipuncture / Unknown 10/28/2024 8:22 AM EST 10/28/2024 8:43 AM EST us Zoran Colon MD LAB BLOOD ORDERABLES Evi l Result [facility]) [facility] [address] [place] [address], * ECG 12 lead (10/28/2024 8:09 AM EST) Only the most recent of2 resultswithin the time period is included. 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 Pathologist [facility] Vancomycin Trough 16.9 10.0 - 20.0 mcg/mL LAB CHEMISTRY METHOD 10/15/2024 1:05 PM EST [facility] Blood Venous blood specimen / Unknown Venipuncture / Unknown 10/15/2024 12:07 PM EST 10/15/2024 12:13 PM EST Lorraine GORMAN LAB BLOOD ORDERABLES Final Result [facility] [address] [place] [address], [place] [phone] * (ABNORMAL) Thyroid stimulating hormone with reflex to free t4 and free t3 (10/13/2024 5:47 AM EST) Pathologist [facility] TSH 28.22(H) 0.40 - 4.00 mcIU/mL LAB CHEMISTRY METHOD 10/13/2024 11:12 AM EST [facility] Comment:Results verified by repeat testing Blood Venous blood specimen / Unknown Venipuncture / Unknown 10/13/2024 5:47 AM EST 10/13/2024 6:41 AM EST Lorraine GORMAN LAB BLOOD ORDERABLES Final Result Performing Organization Address [facility]/ZIP Co de Phone Number [facility] [address] [place] [address], [place] [phone] * Free thyroxine with reflex to free triiodothyronine (10/13/2024 5:47 AM EST) Free T4 0.89 0.70 - 1.80 ng/dL LAB CHEMISTRY METHOD 10/13/2024 1:59 PM EST [facility] Blood Venous blood specimen / Unknown Venipuncture / Unknown 10/13/2024 5:47 AM EST 10/13/2024 6:41 AM EST Lorraine GORMAN LAB BLOOD ORDERABLES Final Result Performing Organization Address [facility]/ZIP Co de Phone Number [facility] [address] [place] [address], [place] [phone] * (ABNORMAL) Triiodothyronine free (10/13/2024 5:47 AM EST) T3, Free 160(L) 230 - 420 pcg/dL LAB CHEMISTRY METHOD 10/13/2024 2:26 PM EST [facility] Blood Venous blood specimen / Unknown Venipuncture / Unknown 10/13/2024 5:47 AM EST 10/13/2024 6:41 AM EST Lorraine GORMAN LAB BLOOD ORDERABLES Final Result Performing Organization Address [facility]/ZIP Co de Phone Number [facility] [address] [place] [address], [place] [phone] * CT Abdomen Pelvis w Contrast (10/12/2024 7:58 PM EST) Anatomical Region Laterality Modality Body Computed Tomogra phy 10/12/2024 8:21 PM EST Impressions 10/12/2024 8:21 PM EST Impression: 1. Findings raising the possibility of mild right lower lobe aspiration or pneumonia. 2. No other acute abnormalities or other CT explanation for reported history of bacteremia. This document has been electronically signed by: Raffy Barros MD on 10/12/2024 20:21:04 Narrative 10/12/2024 8:21 PM EST Exam: Contrast-enhanced CT abdomen and pelvis with multiplanar reformats. Comparison: None. Findings: CT abdomen: Lung bases reveal some mild centrilobular opacities within right lower lobe, raising the possibility of mild aspiration or developing pneumonia. Lung bases otherwise clear. Liver reveals diffuse hypoattenuation/steatosis. No focal hepatic lesions or ductal dilatation. Gallbladder is unremarkable. Spleen is unremarkable. Pancreas and adrenal glands appear unremarkable. Right kidney reveals a 5.3 cm diameter upper pole cyst (5; 57, 12 Hounsfield units). This appears grossly simple. Kidneys otherwise unremarkable. No free intraperitoneal fluid or retroperitoneal masses or adenopathy. Abdominal aorta is within normal limits caliber with minimal calcific athero sclerosis. Bowel loops reveal no abnormal wall thickening or distention. The appendix is not identified, however there is no secondary CT evidence of appendicitis. CT pelvis: A Sr catheter is present within urinary bladder. No pelvic masses, fluid or adenopathy. Osseous structures reveal no destructive osseous lesions. Procedure Note Raffy Barros MD - 10/12/2024 Exam: Contrast-enhanced CT abdomen and pelvis with multiplanarreformats. Comparison: None. Findings: CT abdomen: Lung bases reveal some mild centrilobular opacities within right lower lobe, raising the possibility of mild aspiration ordeveloping pneumonia. Lung bases otherwise clear. Liver reveals diffuse hypoattenuation/steatosis. No focal hepatic lesions or ductaldilatation. Gallbladder is unremarkable. Spleen is unremarkable. Pancreas and adrenal glands appear unremarkable. Right kidney reveals a 5.3 cm diameter upper pole cyst (5; 57, 12 Hounsfield units). This appears grossly simple. Kidneys otherwise unremarkable. No free intraperitoneal fluid or retroperitoneal masses or adenopathy. Abdominal aorta is within normal limits caliber with minimal calcific athero sclerosis. Bowel loops reveal no abnormal wall thickening or distention. Theappendix is not identified, however there is no secondary CT evidence of appendicitis. CT pelvis: A Sr catheter is present within urinary bladder. No pelvic masses, fluid or adenopathy. Osseous structures reveal no destructive osseous lesions. IMPRESSION: Impression: 1. Findings raising the possibility of mild right lower lobe aspirationor pneumonia. 2. No other acute abnormalities or other CT explanation for reported history of bacteremia. This document has been electronically signed by: Raffy Barros MD on 10/12/2024 20:21:[address] PROCEDURES Final Res ult * (ABNORMAL) Gastrointestinal pathogens molecular study (10/12/2024 5:57 PM EST) Campylobacter Detection by PCR Not Detected Not Detected LAB MICROBIOLOGY METHOD 4 7:30 PM [facility] Plesiomonas shigelloides Detection by PCR Not Detected Not Detected LAB MICROBIOLOGY METHOD 4 7:30 PM [facility] Salmonella Detection by PCR Not Detected Not Detected LAB MICROBIOLOGY METHOD 4 7:30 PM [facility] Vibrio Detection by PCR Not Detected Not Detected LAB MICROBIOLOGY METHOD 4 7:30 PM [facility] Vibrio cholerae Detection by PCR Not Detected Not Detected LAB MICROBIOLOGY METHOD 4 7:30 PM [facility] Yersinia enterocolitica Detection by PCR Not Detected Not Detected LAB MICROBIOLOGY METHOD 4 7:30 PM [facility] Enteroaggregative E coli EAEC Detection by PCR Not Detected Not Detected LAB MICROBIOLOGY METHOD 4 7:30 PM [facility] Enteropathogenic E coli EPEC Detection Not Detected Not Detected LAB MICROBIOLOGY METHOD 4 7:30 PM [facility] Enterotoxigenic E coli ETEC LTST Detection Not Detected Not Detected LAB MICROBIOLOGY METHOD 4 7:30 PM [facility] Shiga-like toxin producing E coli STEC STX1 STX2 Det Not Detected Not Detected LAB MICROBIOLOGY METHOD 4 7:30 PM [facility] Shigella Enteroinvasive E coli EIEC Detection Not Detected Not Detected LAB MICROBIOLOGY METHOD 4 7:30 PM [facility] Cryptosporidium Detection by PCR Not Detected Not Detected LAB MICROBIOLOGY METHOD 4 7:30 PM [facility] Cyclospora cayetanensis Detection by PCR Not Detected Not Detected LAB MICROBIOLOGY METHOD 4 7:30 PM [facility] Entamoeba histolytica Detection by PCR Not Detected Not Detected LAB MICROBIOLOGY METHOD 4 7:30 PM [facility] Giardia lamblia Detection by PCR Not Detected Not Detected LAB MICROBIOLOGY METHOD 4 7:30 PM [facility] Adenovirus F 40 41 Detection by PCR Not Detected Not Detected LAB MICROBIOLOGY METHOD 4 7:30 PM [facility] Astrovirus Detection by PCR Not Detected Not Detected LAB MICROBIOLOGY METHOD 4 7:30 PM [facility] Norovirus GI GII Detection by PCR Detected(A ) Not Detected LAB MICROBIOLOGY METHOD 4 7:30 PM [facility] Comment:Alternate method rec ommended if results do not correlate with clinical presentation Sapovirus Detection by PCR Not Detected Not Detected LAB MICROBIOLOGY METHOD 4 7:30 PM [facility] Rotavirus A Detection by PCR Not Detected Not Detected LAB MICROBIOLOGY METHOD 4 7:30 PM [facility] Stool Rectum structure / Unknown Non-blood Collection / Unknown 10/12/2024 5:57 PM EST 10/12/2024 6:01 PM [facility] - 10/12/2024 7:30 PM EST PCR testing is much more sensitive than traditional techniques and allows for the detection of low numbers of stool pathogens. The clinical correlation of PCR results with the need for treatment and clinical outcomes has not been established. Therefore the results of PCR testing for stool pathogens must be taken into clinical context when making treatment decisions. This is a diagnostic test only, repeat testing for cure is not advised. You may consider infectious disease consult for additional guidance. ??Testing Performed by MULTIPLEXED PCR us Lorraine GORMAN LAB MICROBIOLOGY - GENERAL ORDERABLES Edited Result - Final [facility] [address] [place] [address], [place] [phone] * (ABNORMAL) Urinalysis with reflex microscopic and culture (10/12/2024 5:13 PM EST) Only the most recent of2 resultswithin the time period is included. Specific [place] Urine 1.023 1.003 - 1.030 LAB URINALYSIS - AUTOMATED METHOD 10/12/2024 5:49 PM [facility] pH, Urine 6.0 5.0 - 8.0 pH LAB URINALYSIS - AUTOMATED METHOD 10/12/2024 5:49 PM [facility] Leukocytes, Urine Negative Negative LAB URINALYSIS - AUTOMATED METHOD 10/12/2024 5:49 PM [facility] Nitrite, Urine Negative Negative LAB URINALYSIS - AUTOMATED METHOD 10/12/2024 5:49 PM [facility] Protein, Urine Trace <=Trace mg/dL LAB URINALYSIS - AUTOMATED METHOD 10/12/2024 5:49 PM [facility] Glucose, Urine >=1000(A) Negative mg/dL LAB URINALYSIS - AUTOMATED METHOD 10/12/2024 5:49 PM [facility] Ketones, Urine Trace(A) Negative mg/dL LAB URINALYSIS - AUTOMATED METHOD 10/12/2024 5:49 PM [facility] Urobilinogen , Urine 1.0 0.2 - 1.0 mg/dL LAB URINALYSIS - AUTOMATED METHOD 10/12/2024 5:49 PM [facility] Bilirubin, Urine Negative Negative LAB URINALYSIS - AUTOMATED METHOD 10/12/2024 5:49 PM [facility] Blood, Urine Small(A) Negative LAB URINALYSIS - AUTOMATED METHOD 10/12/2024 5:49 PM [facility] RBC, Urine 39.8(H) 0 - 4 /HPF LAB URINALYSIS - AUTOMATED METHOD 10/12/2024 5:49 PM [facility] WBC, Urine 1.3 0 - 4 /HPF LAB URINALYSIS - AUTOMATED METHOD 10/12/2024 5:49 PM [facility] Squamous Epithelial, Urine 6 0 - 60 /LPF LAB URINALYSIS - AUTOMATED METHOD 10/12/2024 5:49 PM [facility] Bacteria, Urine Negative Negative /HPF LAB URINALYSIS - AUTOMATED METHOD 10/12/2024 5:49 PM [facility] Hyaline Casts, Urine 0.0 0 - 3 /LPF LAB URINALYSIS - AUTOMATED METHOD 10/12/2024 5:49 PM [facility] Urine Indwelling urinary catheter / Unknown Non-blood Collection / Unknown 10/12/2024 5:13 PM EST 10/12/2024 5:41 PM EST us Lorraine GORMAN LAB URINE ORDERABLES Final Result [facility] [address] [place] [address], * [place] top urine tube (10/12/2024 3:33 PM EST) Extra Tube Hold for add-ons. 10/12/2024 5:01 PM EST [facility] Comment:Auto resulted. Urine Urine specimen obtained by clean catch procedure / Unknown 10/12/2024 3:33 PM EST 10/12/2024 3:41 PM EST Hernando Gould MD LAB URINE ORDERABLES Final Resul t Performing Organization Address [facility]/ZIP Co de Phone Number [facility] [address] [place] [address], [place] [phone] * Culture urine (10/12/2024 3:33 PM EST) Culture, Urine No growth 10/13/2024 8:52 AM EST [facility] Urine Indwelling urinary catheter / Unknown Non-blood Collection / Unknown 10/12/2024 3:33 PM EST 10/12/2024 3:40 PM EST Lor[facility] GORMAN LAB MICROBIOLOGY - GENERAL ORDERABLES Final Result Performing Organization Address [facility]/ZIP Co de Phone Number [facility] [address] [place] [address], [place] [phone] * Blood Culture, Peripheral Draw #2 (10/12/2024 1:12 PM EST) Only the most recent of4 resultswithin the time period is included. Culture, Blood No growth at 5 days 10/17/2024 2:01 PM EST [facility] Blood Venous blood specimen / Unknown Venipuncture / Unknown 10/12/2024 1:12 PM EST 10/12/2024 1:18 PM EST Lor[facility] GORMAN LAB MICROBIOLOGY - GENERAL ORDERABLES Final Result Performing Organization Address [facility]/ZIP Co de Phone Number [facility] [address] [place] [address], [place] [phone] * (ABNORMAL) TRANSTHORACIC ECHOCARDIOGRAM (TTE) COMPLETE W/ CONTRAST (10/12/2024 11:00 AM EST) Left Atrium Minor [place] 5.1 cm CV PACS Left Atrium Major [place] 5.5 cm CV PACS LA Area Sys (A2C) 17 cm2 CV PACS LA Area Sys (A4C) 17 cm2 CV PACS LA Volume (BP) 46 mL CV PACS RA Area 12.0 cm2 CV PACS RA 2D Volume 31 mL CV PACS Aortic Sinus Valsalva 4.0 cm CV PACS Ascending Aorta 3.6 cm CV PACS IVSD 1.0 0.6 - 1.0 cm CV PACS LVIDD 4.7 4.2 - 5.8 cm CV PACS LVIDS 3.0 2.5 - 4.0 cm CV PACS LVOT Diameter 1.5 cm CV PACS LVPWD 1.1(A) 0.6 - 1.0 cm CV PACS MV E' Tissue Velocity Lateral 7 cm/s CV PACS MV E' Tissue Velocity Septal 5 cm/s CV PACS LVOT Area 1.8 cm2 CV PACS MV Deceleration [place] 4.8 m/s2 CV PACS E Wave Deceleration Time 219 119 - 242 ms CV PACS MV PHT 64 ms CV PACS MV Peak A Conrad 1.07 m/s CV PACS MV Peak E Conrad 1.05 m/s CV PACS MV Area PHT 3.4 cm2 CV PACS RV Diastolic Basal Dimension 4.0 2.5 - 4.1 cm CV PACS RV S' 12 cm/s CV PACS TAPSE 18 mm CV PACS TR Peak Velocity 2.41 m/s CV PACS TR Peak Gradient 23 mmHg CV PACS E/E' Ratio Septal 21 CV PACS E/E' Ratio Averaged 18 CV PACS Relative Wall Thickness ratio 0.47 CV PACS FS 36 % CV PACS LV Mass 2D 176 g CV PACS Ascending Aorta Index 1.60 cm/m2 CV PACS RA 2D Volume Index 14 mL/m2 CV PACS LVIDD Index 2.09 cm/m2 CV PACS LVIDS Index 1.33 cm/m2 CV PACS E/A Ratio 1.0 CV PACS E/E' Ratio Lateral 15 CV PACS LA Volume Index (BP) 20 mL/m2 CV PACS LV Mass Index 2D 78 g/m2 CV PACS BSA 2.29 m2 CV PACS Anatomical Region Laterality Modality Ultrasound Narrative 10/12/2024 11:26 AM EST ?Left ventricle cavity size is normal. Left ventricular systolic function is in the normal range with an ejection fraction of 55-60%.There is Grade II (moderate) diastolic dysfunction. ?Right ventricle cavity is normal. Right ventricular systolic function is normal. ?Aortic valve is mildly calcified and thickened. ?No gross vegetation on aortic valve, mitral valve and tricuspid valve. ?? Pulmonic valve not well-visualized. Left Ventricle Left ventricle cavity size is normal. Thickness at upper limits of normal. Systolic function is normal with an ejection fraction of 55-60%. Abnormal septal bounce. There is Grade II (moderate) diastolic dysfunction. Right Ventricle Right ventricle cavity appears normal. Systolic function is normal. Left Atrium Left atrium cavity size is normal. Right Atrium Right atrium cavity is normal. IVC/SVC Inferior vena cava was not well visualized. Mitral Valve The leaflets are thickened. There is trace regurgitation. There is no evidence of mitral valve stenosis. Tricuspid Valve The leaflets exhibit normal excursion. There is mild regurgitation. There is no evidence of tricuspid valve stenosis. Aortic Valve The aortic valve is trileaflet. The leaflets are mildly thickened. There is no regurgitation or stenosis. Pulmonic Valve The pulmonic valve was not well visualized. There is trace pulmonic valve regurgitation. There is no evidence of pulmonic valve stenosis. Ascending Aorta The aorta was not well visualized. Pericardium Pericardium appears normal. Study Details Overall the study quality was technically difficult. Additional technique includes myocardial contrast perfusion. Definity contrast was given to enhance imaging. Study was difficult due to: poor endocardial visualization. us Lorraine GORMAN CV ECHO PROCEDURES Final Re sult * (ABNORMAL) Creatine kinase and CKMB (10/12/2024 5:57 AM EST) Total CK 542(H) 22 - 269 unit/L LAB CHEMISTRY METHOD 10/12/2024 7:35 AM EST [facility] CK-MB 3.0 1.0 - 3.6 ng/mL LAB CHEMISTRY METHOD 10/12/2024 7:35 AM EST [facility] CK-MB Index 0.0 0.0 - 5.0 LAB CHEMISTRY METHOD 10/12/2024 7:35 AM EST [facility] Blood Venous blood specimen / Unknown Venipuncture / Unknown 10/12/2024 5:57 AM EST 10/12/2024 6:45 AM EST Vivienne Blanchard LAB SUPPORT TECHNICIAN LAB BLOOD ORDERABLES Final Res ult [facility] [address] [place] [address], [place] [phone] * (ABNORMAL) Valproic acid level, total (10/11/2024 4:16 PM EST) Valproic Acid, Total 26(L) 50 - 100 mcg/mL LAB CHEMISTRY METHOD 10/11/2024 4:48 PM EST [facility] Blood Venipuncture / Unknown 10/11/2024 4:16 PM EST 10/11/2024 4:26 PM EST Vivienne Blanchard LAB SUPPORT TECHNICIAN LAB BLOOD ORDERABLES Final Res ult [facility] [address] [place] [address], [place] [phone] * Lactate (10/11/2024 10:38 AM EST) Only the most recent of2 resultswithin the time period is included. Lactate 2.0 0.4 - 2.0 mmol/L LAB CHEMISTRY METHOD 10/11/2024 11:39 AM EST [facility] Blood Venous blood specimen / Unknown Venipuncture / Unknown 10/11/2024 10:38 AM EST 10/11/2024 11:10 AM EST Jose Elias Palm MD LAB BLOOD ORDERABLES Final Re sult [facility] [address] [place] [address], * CT Cervical Spine wo Contrast (10/11/2024 8:06 AM EST) Anatomical Region Laterality Modality Spine, C-spine Computed Tomogra phy 10/11/2024 8:16 AM EST Impressions 10/11/2024 8:35 AM EST No acute fracture or static subluxation of the cervical spine. -------- FINAL REPORT -------- Dictated By: Oskar Walters Dictated Date: 10/11/2024 08:16 ET Assigned Physician: Oskar Walters Reviewed and Electronically Signed By: Oskar Walters Signed Date: 10/11/2024 08:35 ET Workstation ID: [id number] Transcribed By: Self Edit Transcribed Date: 10/11/2024 08:16 ET Narrative 10/11/2024 8:[address] cervical spine, 10/11/2024. HISTORY: unwitnessed fall, dementia. TECHNIQUE: Noncontrast CT of the cervical spine with coronal and sagittal reformats. COMPARISON: 03/19/2024. Dose length product: ??Total for all concurrently acquired exams was 1955 mGy- cm. FINDINGS: Scattered atherosclerotic calcifications. ??Paraspinous soft tissues are otherwise unremarkable. ??No prevertebral soft tissue swelling or CT evidence of an acute epidural hematoma. ??Limited views of the mediastinum and lung apices are unremarkable. Mild mucosal thickening in the inferior right sphenoid sinus. ??Partially visible mucosal thickening in the right maxillary antrum. ??Mastoids, middle ear spaces, and visualized portions of the skull base are normal. No focal bony lesion or fracture. 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 ??The C7-T1 endplates are fused and the facet joints are partially fused. ??Moderate diffuse degenerative changes of the endplates and facet joints. ??There are multilevel mild-moderate degenerative spinal stenoses. ??No significant listhesis. Procedure Note Oskar Walters MD - 10/11/2024 CT cervical spine, 10/11/2024. HISTORY: unwitnessed fall, dementia. TECHNIQUE: Noncontrast CT of the cervical spine with coronal and sagittalreformats. COMPARISON: 03/19/2024. Dose length product: Total for all concurrently acquired exams was 1955mGy-cm. FINDINGS: Scattered atherosclerotic calcifications. Paraspinous soft tissues areotherwise unremarkable. No prevertebral soft tissue swelling or CTevidence of an acute epidural hematoma. Limited views of the mediastinumand lung apices are unremarkable. Mild mucosal thickening in the inferior right sphenoid sinus. Partiallyvisible mucosal thickening in the right maxillary antrum. Mastoids,middle ear spaces, and visualized portions of the skull base are normal. No focal bony lesion or fracture. 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 The C7-T1 endplates are fused and the facet joints are partiallyfused. Moderate diffuse degenerative changes of the endplates and facetjoints. There are multilevel mild-moderate degenerative spinal stenoses.No significant listhesis. IMPRESSION: No acute fracture or static subluxation of the cervical spine. -------- FINAL REPORT -------- Dictated By: Oskar Walters Dictated Date: 10/11/2024 08:16 ET Assigned Physician: Oskar Walters Reviewed and Electronically Signed By: Oskar Walters Signed Date: 10/11/2024 08:35 ET Workstation ID: [id number] Transcribed By: Self Edit Transcribed Date: 10/11/2024 08:16 ET us Elaine GORMAN IMG CT PROCEDURES Final Result * CT Head wo Contrast (10/11/2024 8:06 AM EST) Anatomical Region Laterality Modality Head and Neck Computed Tomogra phy 10/11/2024 8:15 AM EST Impressions 10/11/2024 8:24 AM EST No acute intracranial findings. -------- FINAL REPORT -------- Dictated By: Oskar Walters Dictated Date: 10/11/2024 08:15 ET Assigned Physician: Oskar Walters Reviewed and Electronically Signed By: Oskar Walters Signed Date: 10/11/2024 08:24 ET Workstation ID: [id number] Transcribed By: Self Edit Transcribed Date: 10/11/2024 08:23 ET Narrative 10/11/2024 8:[address] dated 10/11/2024. HISTORY: unwitnessed fall, hx dementia. COMPARISON: 12/28/2023. TECHNIQUE: Noncontrast head CT with coronal and sagittal reformats. Dose length product: ??Total for all concurrently acquired exams was 1955 mGy- cm. FINDINGS: Brain: No hemorrhage, edema, mass, or extra-axial fluid collection. ??No CT evidence of an acute large vessel infarct. ??Ventricles and sulci are age commensurate. ??Patchy hypoattenuation in the supratentorial white matter suggesting mild chronic microvascular ischemic changes. Sinuses/mastoids: Mild mucosal thickening in the left maxillary antrum. ??Moderate mucosal thickening with mucous retention cysts in the right maxillary antrum. ??Mild patchy mucosal thickening in the anterior right ethmoid air cells. Orbits: Left-sided senile calcified pleural plaque. Calvarium: Mild hyperostosis frontalis interna. Other: The skull base soft tissues are normal. Procedure Note Oskar Walters MD - 10/11/[address] dated 10/11/2024. HISTORY: unwitnessed fall, hx dementia. COMPARISON: 12/28/2023. TECHNIQUE: Noncontrast head CT with coronal and sagittal reformats. Dose length product: Total for all concurrently acquired exams was 1955mGy-cm. FINDINGS: Brain: No hemorrhage, edema, mass, or extra-axial fluid collection. No CTevidence of an acute large vessel infarct. Ventricles and sulci are agecommensurate. Patchy hypoattenuation in the supratentorial white mattersuggesting mild chronic microvascular ischemic changes. Sinuses/mastoids: Mild mucosal thickening in the left maxillary antrum.Moderate mucosal thickening with mucous retention cysts in the rightmaxillary antrum. Mild patchy mucosal thickening in the anterior rightethmoid air cells. Orbits: Left-sided senile calcified pleural plaque. Calvarium: Mild hyperostosis frontalis interna. Other: The skull base soft tissues are normal. IMPRESSION: No acute intracranial findings. -------- FINAL REPORT -------- Dictated By: Oskar Walters Dictated Date: 10/11/2024 08:15 ET Assigned Physician: Oskar Walters Reviewed and Electronically Signed By: Oskar Walters Signed Date: 10/11/2024 08:24 ET Workstation ID: [id number] Transcribed By: Self Edit Transcribed Date: 10/11/2024 08:23 ET Elaine GORMAN IMG CT PROCEDURES Final Result * XR Chest 1 View (10/11/2024 7:55 AM EST) Anatomical Region Laterality Modality Body Radiographic Ashwini ging 10/11/2024 8:19 AM EST Impressions 10/11/2024 8:21 AM EST Lungs are clear bilaterally. ??The mediastinum appears within normal limits. -------- FINAL REPORT -------- Dictated By: Gilmer Kang Dictated Date: 10/11/2024 08:19 ET Assigned Physician: Gilmer Kang Reviewed and Electronically Signed By: Gilmer Kang Signed Date: 10/11/2024 08:21 ET Workstation ID: [id number] Transcribed By: Self Edit Transcribed Date: 10/11/2024 08:19 ET Narrative 10/11/2024 8:21 AM EST Frontal view of the chest COMPARISON: Chest radiograph March 27 INDICATION: Cough Procedure Note Gilmer Kang MD - 10/11/2024 Frontal view of the chest COMPARISON: Chest radiograph March 27 INDICATION: Cough IMPRESSION: Lungs are clear bilaterally. The mediastinum appears within normallimits. -------- FINAL REPORT -------- Dictated By: Gilmer Kang Dictated Date: 10/11/2024 08:19 ET Assigned Physician: Gilmer Kang Reviewed and Electronically Signed By: Gilmer Kang Signed Date: 10/11/2024 08:21 ET Workstation ID: [id number] Transcribed By: Self Edit Transcribed Date: 10/11/2024 08:19 ET Elaine Kowalski PA IMG XR PROCEDURES Final Result * Respiratory virus panel molecular study (10/11/2024 7:33 AM EST) Pathologist [facility] Adenovirus Detection by PCR Not Detected Not Detected LAB MICROBIOLOGY METHOD 10/11/2024 8:58 AM [facility] Influenza A PCR Not Detected Not Detected LAB MICROBIOLOGY METHOD 10/11/2024 8:58 AM [facility] Influenza B PCR Not Detected Not Detected LAB MICROBIOLOGY METHOD 10/11/2024 8:58 AM [facility] Coronavirus 229E Not Detected Not Detected LAB MICROBIOLOGY METHOD 10/11/2024 8:58 AM [facility] Coronavirus HKU1 Not Detected Not Detected LAB MICROBIOLOGY METHOD 10/11/2024 8:58 AM [facility] Coronavirus OC43 Not Detected Not Detected LAB MICROBIOLOGY METHOD 10/11/2024 8:58 AM [facility] Coronavirus NL63 Not Detected Not Detected LAB MICROBIOLOGY METHOD 10/11/2024 8:58 AM [facility] Parainfluenza Virus 1 Not Detected Not Detected LAB MICROBIOLOGY METHOD 10/11/2024 8:58 AM [facility] Parainfluenza Virus 2 Not Detected Not Detected LAB MICROBIOLOGY METHOD 10/11/2024 8:58 AM [facility] Parainfluenza Virus 3 Not Detected Not Detected LAB MICROBIOLOGY METHOD 10/11/2024 8:58 AM [facility] Parainfluenza Virus 4 Not Detected Not Detected LAB MICROBIOLOGY METHOD 10/11/2024 8:58 AM [facility] RSV PCR Not Detected Not Detected LAB MICROBIOLOGY METHOD 10/11/2024 8:58 AM EST [facility] Human Metapneumovirus A and B Not Detected Not Detected LAB MICROBIOLOGY METHOD 10/11/2024 8:58 AM EST [facility] Rhinovirus/Entero virus Not Detected Not Detected LAB MICROBIOLOGY METHOD 10/11/2024 8:58 AM EST [facility] Bordetella pertussis Not Detected Not Detected LAB MICROBIOLOGY METHOD 10/11/2024 8:58 AM EST [facility] Bordetella parapertussis Not Detected Not Detected LAB MICROBIOLOGY METHOD 10/11/2024 8:58 AM [facility] Mycoplasma pneumo by PCR Not Detected Not Detected LAB MICROBIOLOGY METHOD 10/11/2024 8:58 AM EST [facility] Chlamydia pneumoniae Not Detected Not Detected LAB MICROBIOLOGY METHOD 10/11/2024 8:58 AM [facility] SARS COV-2 Not Detected Not Detected LAB MICROBIOLOGY METHOD 10/11/2024 8:58 AM [facility] Swab Both anterior nares / Unknown Non-blood Collection / Unknown 10/11/2024 7:33 AM EST 10/11/2024 7:52 AM EST [facility] - 10/11/2024 8:58 AM EST Testing was performed using the [employer] Respiratory Pathogen PCR Assay. All results must be correlated with the clinical findings. Results should not be used as the sole basis for diagnosis. False Negative results may occur from the presence of sequence variants in the region targeted by the assay or the presence of inhibitors. Results may be affected by concurrent antiviral/antimicrobial therapy or levels of organisms that are below the limit of detection. us Elaine GORMAN LAB MICROBIOLOGY - GENERAL ORDSukhi TERRELL Final Result [facility] [address] [place] [address], * Lipase (10/11/2024 7:31 AM EST) Pathologist [facility] Lipase 27 13 - 75 unit/L LAB CHEMISTRY METHOD 10/11/2024 8:23 AM EST [facility] Blood Venous blood specimen / Unknown Venipuncture / Unknown 10/11/2024 7:31 AM EST 10/11/2024 7:54 AM EST Elaine GORMAN LAB BLOOD ORDERABLES Final Resu lt [facility] [address] [place] [address], [place] [phone] * Ammonia (10/11/2024 7:31 AM EST) [facility] Ammonia 18 11 - 35 mcmol/L LAB CHEMISTRY METHOD 10/11/2024 8:17 AM EST [facility] Blood Venous blood specimen / Unknown Venipuncture / Unknown 10/11/2024 7:31 AM EST 10/11/2024 7:52 AM EST Elaine GORMAN LAB BLOOD ORDERABLES Final Resu lt Performing Organization Address City/[facility]/ZIP Co de Phone Number [facility] [address] [place] [address], [place] [phone] * (ABNORMAL) Hepatic function panel (10/11/2024 7:31 AM EST) [facility] Total Protein 7.2 6.0 - 8.0 g/dL LAB CHEMISTRY METHOD 10/11/2024 8:23 AM EST [facility] Albumin 3.3 3.2 - 5.0 g/dL LAB CHEMISTRY METHOD 10/11/2024 8:23 AM EST [facility] Total Bilirubin 0.6 0.0 - 1.4 mg/dL LAB CHEMISTRY METHOD 10/11/2024 8:23 AM EST [facility] Bilirubin, Direct 0.2 0.0 - 0.3 mg/dL LAB CHEMISTRY METHOD 10/11/2024 8:23 AM EST [facility] Bilirubin, Indirect 0.4 0.0 - 1.1 mg/dL LAB CHEMISTRY METHOD 10/11/2024 8:23 AM [facility] ALT (SGPT) 55 10 - 60 unit/L LAB CHEMISTRY METHOD 10/11/2024 8:23 AM [facility] AST (SGOT) 48(H) 10 - 42 unit/L LAB CHEMISTRY METHOD 10/11/2024 8:23 AM [facility] Alkaline Phosphatase 79 42 - 121 unit/L LAB CHEMISTRY METHOD 10/11/2024 8:23 AM [facility] Blood Venous blood specimen / Unknown Venipuncture / Unknown 10/11/2024 7:31 AM EST 10/11/2024 7:54 AM EST Elaine GORMAN LAB BLOOD ORDERABLES Final Resu lt [facility] [address] [place] [address], [place] [phone] * Blood culture pathogens molecular study (10/11/2024 7:27 AM EST) Blood Venous blood specimen / Unknown Venipuncture / Unknown 10/11/2024 7:27 AM EST 10/11/2024 7:56 AM EST Narrative [facility] - 10/11/2024 6:36 PM EST No targets detected by multiplex PCR panel. Refer to culture. 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 Expl anation Health Care Decision (hx) 12/29/2010 AD SUAREZ DIRECTIVE Health Care Decision (hx) 12/29/2010 AD SUAREZ DIRECTIVE Health Care Decision (hx) 12/29/2010 AD SUAREZ DIRECTIVE Health Care Decision (hx) 12/29/2010 AD SUAREZ DIRECTIVE Health Care Decision (hx) 12/29/2010 AD SUAREZ DIRECTIVE Health Care Decision (hx) 12/29/2010 AD SUAREZ DIRECTIVE Health Care Decision (hx) 12/29/2010 AD SUAREZ DIRECTIVE Health Care Decision (hx) 12/29/2010 AD SUAREZ DIRECTIVE Health Care Decision (hx) 12/29/2010 AD SUAREZ DIRECTIVE Health Care Decision (hx) 12/29/2010 AD SUAREZ DIRECTIVE Health Care Decision (hx) 12/29/2010 AD SUAREZ DIRECTIVE Health Care Decision (hx) 12/29/2010 AD SUAREZ DIRECTIVE Health Care Decision (hx) 12/29/2010 AD SUAREZ DIRECTIVE Health Care Decision (hx) 12/29/2010 AD SUAREZ DIRECTIVE Health Care Decision (hx) 12/29/2010 AD SUAREZ DIRECTIVE Health Care Decision (hx) 12/29/2010 AD SUAREZ DIRECTIVE Health Care Decision (hx) 12/29/2010 AD SUAREZ DIRECTIVE Health Care Decision (hx) 12/29/2010 AD SUAREZ DIRECTIVE Health Care Decision (hx) 12/29/2010 AD SUAREZ DIRECTIVE Health Care Decision (hx) 12/29/2010 AD SUAREZ DIRECTIVE Health Care Decision (hx) 12/29/2010 AD SUAREZ DIRECTIVE Health Care Decision (hx) 12/29/2010 AD SUAREZ DIRECTIVE Health Care Decision (hx) 12/29/2010 AD SUAREZ DIRECTIVE Health Care Decision (hx) 12/29/2010 AD SUAREZ DIRECTIVE Health Care Decision (hx) 12/29/2010 AD SUAREZ DIRECTIVE Health Care Decision (hx) 12/29/2010 AD SUAREZ DIRECTIVE Health Care Decision (hx) 12/29/2010 AD SUAREZ DIRECTIVE Health Care Decision (hx) 12/29/2010 AD SUAREZ DIRECTIVE Health Care Decision (hx) 12/29/2010 AD SUAREZ DIRECTIVE Health Care Decision (hx) 12/29/2010 AD SUAREZ DIRECTIVE Health Care Decision (hx) 12/29/2010 AD SUAREZ DIRECTIVE Health Care Decision (hx) 12/29/2010 AD SUAREZ DIRECTIVE Health Care Decision (hx) 12/29/2010 AD SUAREZ DIRECTIVE Health Care Decision (hx) 12/29/2010 AD SUAREZ DIRECTIVE Health Care Decision (hx) 12/29/2010 AD SUAREZ DIRECTIVE Health Care Decision (hx) 12/29/2010 AD SUAREZ DIRECTIVE Health Care Decision (hx) 12/29/2010 AD SUAREZ DIRECTIVE Health Care Decision (hx) 12/29/2010 AD SUAREZ DIRECTIVE Health Care Decision (hx) 12/29/2010 AD SUAREZ DIRECTIVE Health Care Decision (hx) 12/29/2010 AD SUAREZ DIRECTIVE Health Care Decision (hx) 12/29/2010 AD SUAREZ DIRECTIVE Health Care Decision (hx) 12/29/2010 AD SUAREZ DIRECTIVE * Full Code - Default (Latest Code Status on File) Date Activated Date Inactivated Comments 10/28/2024 4:09 PM 10/30/2024 8:27 PM This is or allie is used when code status has not been discussed with the patient, or code status is otherwise unknown/unconfirmed To update the patient's code status, place a code status order. Do not modify or discontinue any currently active code status orders. * Full Code - Default Date Activated Date Inactivated Comments 10/11/2024 10:00 AM 10/17/2024 6:57 PM This is o rder is used when code status has not been discussed with the patient, or code status is otherwise unknown/unconfirmed To update the patient's code status, place a code status order. Do not modify or discontinue any currently active code status orders. Healthcare Agents on File Name Relationship Healthcare Agent Relationship Communication Yan Heredia Relative Health Care Agent Jeri Facetor [place] Legal Guardian Health Care Agen t Care Teams Driver Retraining Instructor Relationship Specialty Start Date End Date Jean Paul Lewis MD [address] [place] [phone] PCP - General 09/08/09
--- OUTSIDE RECORDS SUMMARY | 2024-12-12 12:51 | XMS_ITS ---
Author Organization [facility] Address [address] [place] [address] Care Team Providers Care Car Repossessor Name Role Phone CYRIL RAZO Primary Care Provider MARIANNA CHAN Unavailable [phone] REASON FOR VISIT [facility] Update Encounters Encounter Location Date Provider Diagnosis [facility] [address] [place] [address] 05/14/2024 MARIANNA CHAN PLAN OF TREATMENT No Information Progress Notes * SMILEY RADER SDOB:[birth year] (78 yo M)Acc No.[id number]:05/14/2024 Patient:??SMILEY RADER S :1945?Age:78 Y?Sex:Berta gunn Address:[address] [place] [address] [place] [address] * true * Date:??
--- NOTE | 2024-12-12 14:07 | P.HPHOSP_ITS ---
History of Present Illness Date of Service: 12/12/24 Attending physician on admission: Andrew Holden Chief Complaint: Generalized weakness Pt is a 79-year-old male with a PMH significant for?asthma, HTN, nyr-lngbysv-hildbygfn type 2 diabetes, hypothyroidism, BPH, hard of hearing, and schizoaffective disorder who presents to the ED from [facility] with generalized weakness, difficulty standing or ambulating, and confusion. Pt is alert and oriented to self, time, situation, but not to place. Overall pt is a poor historian. Reports has been feeling weak, fatigue, and ?shaky? for the past few days. Difficulty standing or ambulating. Complains of cough occasionally productive of whitish sputum but no difficulty breathing. No N/V/D or abdominal pain. Denies chest pain/pressure, palpitations. ? In the ED pt was febrile up to 101.3, tachypneic up to 30, and hypoxic as low as 88% on RA. Labs were significant for testing positive for COVID, normocytic anemia of 12.6/35.6, lactic acid 2.5, and AST 62. CXR negative for acute cardiopulmonary disease. CT?of head negative for acute intracranial hemorrhage, but showed global cerebral atrophy and small-vessel occlusive disease with acute stroke/nonhemorrhagic ischemia not excluded. EKG demonstrated normal sinus rhythm without evidence of acute ischemia. Pt was treated with ceftriaxone, acetaminophen, IVF, and dexamethasone. Pt will be admitted to the hospital for treatment and evaluation of acute hypoxic respiratory failure in the setting of COVID infection. Review of Systems 2 Review of Systems: Negative except for that which is stated in the [facility] Medical History (Updated 12/12/24 @ 15:12 by VITA Colunga) BPH (benign prostatic hyperplasia) Hypothyroidism Non-insulin dependent type 2 diabetes mellitus HTN (hypertension) HLD (hyperlipidemia) Schizoaffective disorder Social History Advance Directives: No Advance Directives Information Provided: Yes Meds Allergies Allergy/AdvReac Type Severity Reaction Status Date / Time No Known Allergies Allergy Verified 12/12/24 09:50 Home Medications ?Medication ?Instructions ?Recorded ?Confirmed ?Last Taken ?Type acetaminophen 325 mg tablet 650 mg PO Q4H PRN Pain 12/12/24 12/12/24 Unknown History albuterol sulfate 90 mcg/actuation 2 puff inhalation Q6H PRN 12/12/24 12/12/24 Unknown History aerosol inhaler (Ventolin HFA) Shortness Of Breath Or Wheezing amlodipine 5 mg tablet 5 mg PO DAILY 12/12/24 12/12/24 Unknown History aspirin 81 mg tablet,delayed 81 mg PO DAILY 12/12/24 12/12/24 Unknown History release buspirone 5 mg tablet 10 mg PO BID 12/12/24 12/12/24 Unknown History cyanocobalamin (vitamin B-12) 500 500 mcg PO DAILY 12/12/24 12/12/24 Unknown History mcg tablet dextrose 40 % oral gel (Glucose 15 g PO Q15M PRN low sugar 12/12/24 12/12/24 Unknown History Gel) divalproex 500 mg tablet,delayed 1,500 mg PO BEDTIME 12/12/24 12/12/24 Unknown History release glipizide 5 mg tablet 7.5 mg PO DAILY 12/12/24 12/12/24 Unknown History levothyroxine 112 mcg tablet 112 mcg PO Q48H 12/12/24 12/12/24 Unknown History levothyroxine 175 mcg tablet 175 mcg PO Q48H 12/12/24 12/12/24 Unknown History magnesium hydroxide 400 mg/5 mL 30 ml PO DAILY PRN Constipation 12/12/24 12/12/24 Unknown History oral suspension (Milk of Magnesia) magnesium oxide 400 mg PO BEDTIME 12/12/24 12/12/24 Unknown History olanzapine 15 mg tablet 15 mg PO BEDTIME 12/12/24 12/12/24 Unknown History tamsulosin 0.4 mg capsule (Flomax) 0.4 mg PO BEDTIME 12/12/24 12/12/24 Unknown History trazodone 50 mg tablet 50 mg PO BEDTIME 12/12/24 12/12/24 Unknown History Physical Exam 2 Vital Signs and Narrative: Vital Signs: Last Vital Signs Temp 97.5 F 12/12/24 13:11 Pulse 61 12/12/24 13:11 Resp 22 H 12/12/24 13:11 BP 113/75 12/12/24 13:11 Pulse Ox 97 12/12/24 13:11 O2 Del Method Room Air 12/12/24 13:11 BMI result Body Mass Index 28.5 General: AOx3 though not to place, hard of hearing. In no acute distress Resp: CTA bilaterally CVS: S1, S2, RRR GI: +BS, NT, no distention Skin: Warm, dry Neuro: Cranial nerves II-XII grossly intact bilaterally. Motor grossly intact bilaterally Extremities: Trace bilateral edema Psych: Appropriate affect Results Labs 12/12/24 09:57 12/12/24 09:59 Labs: Laboratory Results - last 24 hr 12/12/24 12/12/24 12/12/24 09:57 09:59 10:13 MCV 93.2 MCH 33.0 MCHC 35.4 RDW 13.2 Plt Count 187 MPV 10.6 Immature Gran % (Auto) 0.5 H Neut % (Auto) 71.1 Lymph % (Auto) 13.8 L [place] % (Auto) 13.1 H Eos % (Auto) 0.5 Baso % (Auto) 1.0 Lymph # (Auto) 1.5 [place] # (Auto) 1.4 H Eos # (Auto) 0.1 Baso # (Auto) 0.1 Abs Immat Gran (auto) 0.06 H Absolute Neuts (auto) 7.7 Absolute Nucleated RBC 0.000 Nucleated RBC % (auto) 0.0 PT 11.9 INR 1.0 Anion Gap 13 Estim Creat Clear Calc 64.6 Estimated GFR > 60 Random Glucose 126 H Lactic Acid 2.5 H* Lactic Acid F/U @ 2Hr Calcium 8.7 Magnesium 1.7 Total Bilirubin 0.3 AST 62 H ALT 23 Alkaline Phosphatase 54 Total Protein 7.4 Albumin 3.5 Urine Color Yellow Urine Appearance Clear Urine pH 7.0 Ur Specific [place] 1.015 Urine Protein Trace Urine Glucose (UA) Negative Urine Ketones Negative Urine Blood Negative Urine Nitrite Negative Ur Leukocyte Esterase Negative Urine Opiates Screen Not Detected Ur Buprenorphine Scrn Not Detected Ur Oxycodone Screen Not Detected Urine Methadone Screen Not Detected Urine Fentanyl Screen Not Detected Ur Barbiturates Screen Not Detected Ur Phencyclidine Scrn Not Detected Ur Amphetamines Screen Not Detected U Benzodiazepines Scrn Not Detected Urine Cocaine Screen Not Detected U Marijuana (THC) Screen Not Detected Ethyl Alcohol < 10 Influenza Type A (PCR) NEGATIVE Influenza Type B (PCR) NEGATIVE RSV RNA Qual (PCR) NEGATIVE SARS-CoV-2 RNA (RT-PCR) POSITIVE A 12/12/24 12:16 MCV MCH MCHC RDW Plt Count MPV Immature Gran % (Auto) Neut % (Auto) Lymph % (Auto) [place] % (Auto) Eos % (Auto) Baso % (Auto) Lymph # (Auto) [place] # (Auto) Eos # (Auto) Baso # (Auto) Abs Immat Gran (auto) Absolute Neuts (auto) Absolute Nucleated RBC Nucleated RBC % (auto) PT INR Anion Gap Estim Creat Clear Calc Estimated GFR Random Glucose Lactic Acid Lactic Acid F/U @ 2Hr 2.0 Calcium Magnesium Total Bilirubin AST ALT Alkaline Phosphatase Total Protein Albumin Urine Color Urine Appearance Urine pH Ur Specific [place] Urine Protein Urine Glucose (UA) Urine Ketones Urine Blood Urine Nitrite Ur Leukocyte Esterase Urine Opiates Screen Ur Buprenorphine Scrn Ur Oxycodone Screen Urine Methadone Screen Urine Fentanyl Screen Ur Barbiturates Screen Ur Phencyclidine Scrn Ur Amphetamines Screen U Benzodiazepines Scrn Urine Cocaine Screen U Marijuana (THC) Screen Ethyl Alcohol Influenza Type A (PCR) Influenza Type B (PCR) RSV RNA Qual (PCR) SARS-CoV-2 RNA (RT-PCR) Imaging Radiologist's Impressions: Impressions Head CT 12/12/24 10:20 IMPRESSION: No acute intracranial hemorrhage. Global cerebral atrophy. Small vessel occlusive disease. Acute stroke/nonhemorrhagic ischemia cannot be excluded. If clinical concern recommend non-IV contrast MRI brain. Polypoid right-sided paranasal sinus disease. Electronically signed by: Brayden Krishnamurthy MD 12/12/2024 11:05 AM [facility]back[facility] RP Chest X-Ray 12/12/24 10:30 IMPRESSION: Clear lungs. Electronically signed by: Marbin Harrison MD 12/12/2024 10:43 AM Feedback-Machine RP Assessment and Plan (1) Acute hypoxic respiratory failure: Status: Acute (2) COVID-19: Status: Acute Plan Pt is a 79-year-old male with a PMH significant for?asthma, HTN, kiu-rjvmzzk-rstgmjygu type 2 diabetes, hypothyroidism, BPH, hard of hearing, and schizoaffective disorder who presents to the ED from [facility] with generalized weakness, difficulty standing or ambulating, and confusion. Pt will be admitted to the hospital for treatment and evaluation of acute hypoxic respiratory failure in the setting of COVID infection. Acute hypoxic respiratory failure in setting of COVID infection Pt desatting to the 80s on RA, not on home O2; generalized weakness, difficulty ambulating Will treat with dexamethasone, DuoNebs p.r.n., guaifenesin Titrate supplemental O2 >92, wean as tolerated PT consult Monitor respiratory status Question of acute metabolic encephalopathy Pt with possible confusion at assisted living Pt is alert and oriented to self, time, and situation, but not to place Pt not clearly encephalopathic at time of interview and exam Monitor mentation Mtx-[id number]-bsyiygmvd type 2 diabetes Continue glipizide Will place on sliding scale insulin Diabetic diet HTN Continue amlodipine Hypothyroidism Continue levothyroxine BPH Tamsulosin Mood disorder Continue buspirone, Depakote, and olanzapine Full Code Attending:?Dr. Holden DVT Prophylaxis: Lovenox Pt will require a hospitalization of at least two nights for treatment of?acute hypoxic respiratory failure in the setting of COVID infection that will require IV steroids and supplemental oxygen, as well as close monitoring of respiratory status and PT consultation. with . Quality Stroke Does the patient have a stroke diagnosis?: No VTE Prior VTE?: No VTE Risk Level:: Medical - moderate - high VTE Device Contraindication: Treatment Not Indicated VTE Drug Contraindication: N/A - Med Ordered
--- NOTE | 2024-12-12 14:16 | PHA.MEDREC ---
Addendum entered by Sukh Eagle RPh 12/12/24 14:45: Reviewed by Pharmacy Original Note: Pharmacy Consult ? Medication Reconciliation Pharmacy has completed the medication reconciliation. Utilized list from [facility] to confirm med list.
--- NOTE | 2024-12-12 15:20 | PC.NURSE ---
Spoke to Eloisa from the [facility], informed them patient has covid and will be admitted for hypoxia.
[2024-12-12] MEDS: Enoxaparin Sodium 40 MG/0.4 ML SYRINGE SUBCUT (16:58)
[2024-12-12] MEDS: 0.9 % Sodium Chloride Flush 3 ML SYRINGE IVFLUSH ×2 (16:58→23:08)
[2024-12-12] MEDS: Levothyroxine Sodium 112 MCG TABLET PO (16:58)
[2024-12-12 17:09] LABS: Glucose, Whole Blood 202 mg/dL (60-115)
[2024-12-12] MEDS: Insulin Lispro 100 UNIT/ML 3 ML VIAL SUBCUT ×2 (17:15→20:57)
--- NOTE | 2024-12-12 19:33 | MHC.EDTECH ---
checked patients vitals, patient stated that dinner was good. Patient watching tv at this time.
[2024-12-12 20:33] LABS: Glucose, Whole Blood 289 mg/dL (60-115)
[2024-12-12] MEDS: OLANZapine 7.5 MG TABLET 15 MG PO (20:57)
[2024-12-12] MEDS: traZODone HCL 50 MG TABLET PO (20:57)
[2024-12-12] MEDS: Magnesium Oxide 400 MG TABLET PO (20:58)
[2024-12-12] MEDS: Tamsulosin HCL 0.4 MG CAPSULE PO (20:58)
[2024-12-12] MEDS: Divalproex Sodium 500 MG TABLET.DR 1500 MG PO (20:58)
[2024-12-12 23:06] LABS: Glucose, Whole Blood 198 mg/dL (60-115)
[2024-12-12] MEDS: busPIRone HCl 10 MG TABLET PO (23:08)
[2024-12-13] VITALS (7 sets, daily range): BP systolic 98–152; BP diastolic 62–88; PULSE 55–78; RESP 16–19; TEMP 36–36.2; O2SAT 92–95
[2024-12-13] MEDS: Levothyroxine Sodium 175 MCG TABLET PO (06:45)
[2024-12-13 07:54] LABS: Glucose, Whole Blood 137 mg/dL (60-115)
[2024-12-13 09:04] LABS: Hematocrit 38.3 % (42.0-52.0); Hemoglobin 13.4 g/dl (14.0-18.0); Mean Corpuscular Hemoglobin 32.7 pg (27.0-33.0); Mean Corpuscular Volume 93.4 fL (80.0-98.0); Mean Platelet Volume 10.7 fL (9.4-12.4); Platelet Count 194 X10*3/uL (160-400); Red Cell Distribution Width 13.5 % (11.0-16.0); White Blood Count 12.6 X10*3/uL (4.8-10.8)
[2024-12-13 09:19] LABS: Anion Gap 15 (12-20); Blood Urea Nitrogen 19 mg/dL (9-16); C Reactive Protein 3.36 mg/dL (< or = 0.50); Calcium 9.3 mg/dL (8.4-10.2); Carbon Dioxide 24 mmol/L (22-29); Chloride 106 mmol/L (96-108); Creatinine Clr Calc Pharmacy 75.9; Estimated Glomerular Filt Rate > 60; Glucose Random 146 mg/dL (60-115); Potassium 4.7 mmol/L (3.3-5.1); Sodium 140 mmol/L (135-145)
[2024-12-13] MEDS: 0.9 % Sodium Chloride Flush 3 ML SYRINGE IVFLUSH ×3 (09:27→21:50)
[2024-12-13] MEDS: glipiZIDE 5 MG TABLET 7.5 MG PO (11:00)
[2024-12-13] MEDS: Cyanocobalamin (Vitamin B-12) 500 MCG TABLET PO (11:00)
[2024-12-13] MEDS: Aspirin Enteric Coated 81 MG TABLET.DR PO (11:00)
[2024-12-13] MEDS: dexAMETHasone sod phosphate 4 MG/ML VIAL 6 MG IVPUSH (11:00)
[2024-12-13 11:03] LABS: Glucose, Whole Blood 234 mg/dL (60-115)
[2024-12-13] MEDS: amLODIPine Besylate 5 MG TABLET PO (11:05)
[2024-12-13] MEDS: busPIRone HCl 10 MG TABLET PO ×2 (11:05→21:50)
[2024-12-13] MEDS: Insulin Lispro 100 UNIT/ML 3 ML VIAL SUBCUT ×3 (11:35→21:50)
--- NOTE | 2024-12-13 13:18 | P.PNIM_ITS ---
Subjective Subjective Date of Service: 12/13/24 Interval History: fever resolved [101.3 yesterday morning] on 1L O2 coughing Review of Systems Review of Systems: Yes all other systems are reviewed and are negative Physical Exam 2 Vital Signs: Vital Signs: Last Vital Signs Temp 97.1 F 12/13/24 11:28 Pulse 78 12/13/24 11:28 Resp 19 12/13/24 11:28 BP 101/62 12/13/24 11:28 Pulse Ox 92 12/13/24 12:22 O2 Del Method Room Air 12/13/24 11:28 O2 Flow Rate 2 12/13/24 03:06 BMI result Body Mass Index 28.5 Gen: in no acute distress HEENT: sclera anicteric, moist mucus membranes Neck: supple Lungs: clear to auscultation bilaterally Heart: regular rate and rhythm, no murmurs Abd: soft, non-tender, non-distended Ext: no edema Skin: warm/well-perfused Neuro: alert and oriented x3, no focal findings Psych: appropriate affect Objective Data Active Medications Acetaminophen (Acetaminophen 325 Mg Tablet) 650 mg PO Q6H PRN PRN Reason: Pain, Mild 1-3,fever,headache Albuterol Sulfate (Albuterol Sulfate 90 Mcg 8 Gm Inhaler) 2 puff INHALE Q6H PRN PRN Reason: Shortness Of Breath Or Wheezing Albuterol/Ipratropium (Albuterol/Iprat 2.5/0.5mg 3 Ml Ampul.Neb) 3 ml INHALE RQ4H WHILE AWAKE PRN PRN Reason: Shortness of Breath/Wheezing Amlodipine Besylate (Amlodipine Besylate 5 Mg Tablet) 5 mg PO DAILY [facility]; Protocol Aspirin (Aspirin Enteric Coated 81 Mg Tablet.Dr) 81 mg PO DAILY [facility] Buspirone HCl (Buspirone Hcl 10 Mg Tablet) 10 mg PO BID [facility] Last Admin: 12/12/24 23:08 Dose: 10 mg Documented By: JH Calcium Carbonate (Calcium Carbonate 750 Mg Tab.Chew) 750 mg PO Q4H PRN PRN Reason: Heartburn Cyanocobalamin (Cyanocobalamin (Vitamin B-12) 500 Mcg Tablet) 500 mcg PO DAILY [facility] Dexamethasone Sodium Phosphate (Dexamethasone Sod Phosphate 4 Mg/Ml Vial) 6 mg IVPUSH DAILY [facility] Dextrose (Dextrose 50 % 25 Gm/50 Ml Syringe) 25 gm IVPUSH Q15M PRN; Protocol PRN Reason: per Hypoglycemia Standing Ord. Divalproex Sodium (Divalproex Sodium 500 Mg Tablet.) 1,500 mg PO BEDTIME [facility] Last Admin: 12/12/24 20:58 Dose: 1,500 mg Documented By: AKASH Enoxaparin Sodium (Enoxaparin Sodium 40 Mg/0.4 Ml Syringe) 40 mg SUBCUT Q24H [facility] Last Admin: 12/12/24 16:58 Dose: 40 mg Documented By: CESAR Glipizide (Glipizide 5 Mg Tablet) 7.5 mg PO DAILY [facility] Glucose (Glucose Gel 15 Gm Gel..Gram.) 15 gm PO Q15M PRN; Protocol PRN Reason: per Hypoglycemia Standing Ord. Insulin Human Lispro (Insulin Lispro 100 Unit/Ml 3 Ml Vial) 0 unit SUBCUT QIDACHS [facility]; Protocol Last Admin: 12/13/24 10:46 Dose: Not Given Documented By: KAE Non-Admin Reason: No Insulin Coverage Levothyroxine Sodium (Levothyroxine Sodium 112 Mcg Tablet) 112 mcg PO MoWeFrSa@0600 [facility] Last Admin: 12/12/24 16:58 Dose: 112 mcg Documented By: CESAR Levothyroxine Sodium (Levothyroxine Sodium 175 Mcg Tablet) 175 mcg PO [id number]@0600 [facility] Last Admin: 12/13/24 06:45 Dose: 175 mcg Documented By: N-CONNO Magnesium Hydroxide (Milk Of Magnesia 30 Ml Oral.Susp) 30 ml PO DAILY PRN PRN Reason: Constipation Magnesium Oxide (Magnesium Oxide 400 Mg Tablet) 400 mg PO BEDTIME [facility] Last Admin: 12/12/24 20:58 Dose: 400 mg Documented By: AKASH Melatonin (Melatonin 3 Mg Tablet) 6 mg PO BEDTIME PRN PRN Reason: Insomnia Olanzapine (Olanzapine 7.5 Mg Tablet) 15 mg PO BEDTIME [facility] Last Admin: 12/12/24 20:57 Dose: 15 mg Documented By: AKASH Ondansetron HCl (Ondansetron Hcl 4 Mg/2 Ml Vial) 4 mg IVPUSH Q8H PRN PRN Reason: Nausea and Vomiting Sodium Chloride (0.9 % Sodium Chloride Flush 3 Ml Syringe) 3 ml IVFLUSH QSHIFT [facility] Last Admin: 12/12/24 23:08 Dose: 3 ml Documented By: JH Tamsulosin HCl (Tamsulosin Hcl 0.4 Mg Capsule) 0.4 mg PO BEDTIME [facility] Last Admin: 12/12/24 20:58 Dose: 0.4 mg Documented By: AKASH Trazodone HCl (Trazodone Hcl 50 Mg Tablet) 50 mg PO BEDTIME [facility] Last Admin: 12/12/24 20:57 Dose: 50 mg Documented By: AKASH Labs 12/13/24 08:20 12/13/24 08:20 Labs: Laboratory Results - last 24 hr 12/12/24 12/12/24 12/12/24 17:06 20:29 23:02 MCV MCH MCHC RDW Plt Count MPV Absolute Nucleated RBC Nucleated RBC % (auto) Anion Gap Estim Creat Clear Calc Estimated GFR POC Glucose 202 H 289 H 198 H Random Glucose Calcium C-Reactive Protein 12/13/24 12/13/24 12/13/24 07:39 08:20 10:59 MCV 93.4 MCH 32.7 MCHC 35.0 RDW 13.5 Plt Count 194 MPV 10.7 Absolute Nucleated RBC 0.000 Nucleated RBC % (auto) 0.0 Anion Gap 15 Estim Creat Clear Calc 75.9 Estimated GFR > 60 POC Glucose 137 H 234 H Random Glucose 146 H Calcium 9.3 D C-Reactive Protein 3.36 H Microbiology Microbiology Results: Microbiology 12/12/24 10:00 Blood Culture - Preliminary Blood - Venous No growth after 24 hours. 12/12/24 09:57 Blood Culture - Preliminary Blood - Venous No growth after 24 hours. Assessment and Plan (1) Acute hypoxic respiratory failure: Status: Acute (2) COVID-19: Status: Acute Plan d2 for 79yo M with asthma, HTN, DM2, hypothyroidism, BPH, schizoaffective disorder sent in from [facility] with weakness, difficulty standing/ambulating, confusion; admitted for hypoxia due to Covid-19 infection acute hypoxic respiratory failure due to Covid-19 infection - dexamethasone 12/12-12/22 - supplemental O2, wean as tolerated acute metabolic encephalopathy - likely due to hypoxia, resolving DM2 - glipizide, correction-dose lispro HTN - amlodipine hypothyroidism - continue LT4 BPH - continue tamsulosin mood disorder - buspirone, valproate, olanzapine VTE prophylaxis - enoxaparin dispo - PT consult: home with [facility] In my clinical judgment, the patient requires continued inpatient hospitalization for the following reasons: hypoxia Total time managing care of this patient today: 35 minutes. Quality Stroke Does the patient have a stroke diagnosis?: No VTE Prior VTE?: No VTE Risk Level:: Medical - moderate - high VTE Device Contraindication: Treatment Not Indicated VTE Drug Contraindication: N/A - Med Ordered
--- NOTE | 2024-12-13 14:46 | MHC.CM.PN ---
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 PT W/ACUTE RESP FAILURE D/T COVID AND CONFUSION, PT LIV[facility], PER HOSPITALIST ANTIC PT WILL P.T. FOR DISPO AND MAY NEED STR VS HOME PT. PCP CYRIL RAZO MD AND GUARDIANSHIP PAPERWORK REQUESTED VIA EMAIL, CM STILL AWAITING RESPONSE AT TIME OF THIS NOTE.
[2024-12-13 15:22] LABS: Glucose, Whole Blood 182 mg/dL (60-115)
[2024-12-13] MEDS: Enoxaparin Sodium 40 MG/0.4 ML SYRINGE SUBCUT (18:39)
[2024-12-13 20:27] LABS: Glucose, Whole Blood 197 mg/dL (60-115)
[2024-12-13] MEDS: OLANZapine 7.5 MG TABLET 15 MG PO (21:50)
[2024-12-13] MEDS: Tamsulosin HCL 0.4 MG CAPSULE PO (21:50)
[2024-12-13] MEDS: traZODone HCL 50 MG TABLET PO (21:50)
[2024-12-13] MEDS: Divalproex Sodium 500 MG TABLET.DR 1500 MG PO (21:50)
[2024-12-13] MEDS: Magnesium Oxide 400 MG TABLET PO (21:50)
[2024-12-14 04:00] VITALS: BP 143/84; PULSE 63; TEMP 36.3; O2SAT 92
[2024-12-14] MEDS: Levothyroxine Sodium 112 MCG TABLET PO (06:02)
[2024-12-14 07:12] LABS: Glucose, Whole Blood 129 mg/dL (60-115)
[2024-12-14 07:39] VITALS: BP 140/88; PULSE 72; RESP 20; TEMP 36.4; O2SAT 94
[2024-12-14 08:23] LABS: Hematocrit 37.3 % (42.0-52.0); Mean Corpuscular HGB Conc 34.9 g/dl (31.0-36.0); Mean Corpuscular Hemoglobin 33.2 pg (27.0-33.0); Mean Corpuscular Volume 95.2 fL (80.0-98.0); Mean Platelet Volume 11.1 fL (9.4-12.4); Platelet Count 211 X10*3/uL (160-400); Red Blood Count 3.92 X10*6/uL (4.60-5.80); Red Cell Distribution Width 13.7 % (11.0-16.0)
[2024-12-14 08:31] LABS: C Reactive Protein 1.52 mg/dL (< or = 0.50)
[2024-12-14 09:23] VITALS: PULSE 101; PULSE 72; O2SAT 94; O2SAT 95
--- NOTE | 2024-12-14 09:25 | MHC.CM.PN ---
CM director received copy of guardianship via [employer], copy uploaded to [employer] and placed in chart. Pt also has a Christine Order however unable to access copy will need to be requested from [facility] if no response from guardian.
--- NOTE | 2024-12-14 09:26 | P.DS_ITS ---
DS: Providers Provider Date of Service: 12/14/24 Date of admission: 12/12/24 15:02 Date of discharge: 12/14/24 Primary care physician: Shaquille Gaston MD DS: Diagnosis Discharge Diagnosis (1) Acute hypoxic respiratory failure: Status: Acute (2) COVID-19: Status: Acute (3) Acute metabolic encephalopathy: Status: Acute DS: Summary Hospital Course Hospital Course: From the history and physical by the admitting hospitalist, VITA Colunga, 12/12/24: Pt is a 79-year-old male with a PMH significant for?asthma, HTN, [id number] type 2 diabetes, hypothyroidism, BPH, hard of hearing, and schizoaffective disorder who presents to the ED from [facility] with generalized weakness, difficulty standing or ambulating, and confusion. Pt is alert and oriented to self, time, situation, but not to place. Overall pt is a poor historian. Reports has been feeling weak, fatigue, and ?shaky? for the past few days. Difficulty standing or ambulating. Complains of cough occasionally productive of whitish sputum but no difficulty breathing. No N/V/D or abdominal pain. Denies chest pain/pressure, palpitations. ? In the ED pt was febrile up to 101.3, tachypneic up to 30, and hypoxic as low as 88% on RA. Labs were significant for testing positive for COVID, normocytic anemia of 12.6/35.6, lactic acid 2.5, and AST 62. CXR negative for acute cardiopulmonary disease. CT?of head negative for acute intracranial hemorrhage, but showed global cerebral atrophy and small-vessel occlusive disease with acute stroke/nonhemorrhagic ischemia not excluded. EKG demonstrated normal sinus rhythm without evidence of acute ischemia. Pt was treated with ceftriaxone, acetaminophen, IVF, and dexamethasone. Pt will be admitted to the hospital for treatment and evaluation of acute hypoxic respiratory failure in the setting of COVID infection. 79yo M with asthma, HTN, DM2, hypothyroidism, BPH, schizoaffective disorder sent in from [facility] with weakness, difficulty standing/ambulating, confusion; admitted for hypoxia due to Covid-19 infection. He was treated with supplemental oxygen and dexamethasone 6 mg daily x 3 days. He was weaned off of oxygen and weakness and confusion improved, though he has baseline schizoaffective disorder. He was seen by PT and home PT/VNA was recommended. He did not need home oxygen. He was discharged with 7 more days of dexamethasone 6 mg daily. Time Attestation Discharge Coordination Time (in mins): 40 Quality: Safe Use of Opioids Does Pt have an Active Cancer Diagnosis on the Problem List?: No Quality: Stroke Does the patient have a stroke diagnosis?: No Physical Exam Vital Signs: Vital Signs: Last Vital Signs Temp 97.6 F 12/14/24 07:39 Pulse 72 12/14/24 07:39 Resp 20 12/14/24 07:39 BP 140/88 H 12/14/24 07:39 Pulse Ox 94 12/14/24 07:39 O2 Del Method Room Air 12/14/24 07:39 O2 Flow Rate 2 12/13/24 03:06 BMI result Body Mass Index 28.5 Gen: in no acute distress HEENT: sclera anicteric, moist mucus membranes Neck: supple Lungs: clear to auscultation bilaterally Heart: regular rate and rhythm, no murmurs Abd: soft, non-tender, non-distended Ext: no edema Skin: warm/well-perfused Neuro: alert and oriented x3, no focal findings Psych: appropriate affect DS: Data Data Completed and Pending Completed studies during hospitalization [Text1]: Laboratory Results WBC 15.0 X10*3/uL (4.8-10.8) H 12/14/24 08:03 RBC 3.92 X10*6/uL (4.60-5.80) L 12/14/24 08:03 Hgb 13.0 g/dl (14.0-18.0) L 12/14/24 08:03 Hct 37.3 % (42.0-52.0) L 12/14/24 08:03 MCV 95.2 fL (80.0-98.0) 12/14/24 08:03 MCH 33.2 pg (27.0-33.0) H 12/14/24 08:03 MCHC 34.9 g/dl (31.0-36.0) 12/14/24 08:03 RDW 13.7 % (11.0-16.0) 12/14/24 08:03 Plt Count 211 X10*3/uL (160-400) 12/14/24 08:03 MPV 11.1 fL (9.4-12.4) 12/14/24 08:03 Immature Gran % (Auto) 0.5 % (0.0-0.4) H 12/12/24 09:57 Neut % (Auto) 71.1 % (45-73) 12/12/24 09:57 Lymph % (Auto) 13.8 % (20-40) L 12/12/24 09:57 Ocean % (Auto) 13.1 % (2-11) H 12/12/24 09:57 Eos % (Auto) 0.5 % (0-4) 12/12/24 09:57 Baso % (Auto) 1.0 % (0-2) 12/12/24 09:57 Lymph # (Auto) 1.5 X10*3/uL (1.2-4.9) 12/12/24 09:57 Ocean # (Auto) 1.4 X10*3/uL (0.1-1.2) H 12/12/24 09:57 Eos # (Auto) 0.1 X10*3/uL (0.0-0.4) 12/12/24 09:57 Baso # (Auto) 0.1 X10*3/uL (0.0-0.2) 12/12/24 09:57 Abs Immat Gran (auto) 0.06 X10*3/uL (0.00-0.03) H 12/12/24 09:57 Absolute Neuts (auto) 7.7 x10*3/uL (2.0-8.3) 12/12/24 09:57 Absolute Nucleated RBC 0.000 X10*3/uL (0.0-0.012) 12/14/24 08:03 Nucleated RBC % (auto) 0.0 /100WBC (0.0-0.2) 12/14/24 08:03 PT 11.9 SEC (10.9-12.4) 12/12/24 09:59 INR 1.0 (0.9-1.1) 12/12/24 09:59 Sodium 140 mmol/L (135-145) 12/13/24 08:20 Potassium 4.7 mmol/L (3.3-5.1) 12/13/24 08:20 Chloride 106 mmol/L (96-108) 12/13/24 08:20 Carbon Dioxide 24 mmol/L (22-29) 12/13/24 08:20 Anion Gap 15 (12-20) 12/13/24 08:20 BUN 19 mg/dL (9-16) H 12/13/24 08:20 Creatinine 0.92 mg/dL (0.5-1.4) 12/13/24 08:20 Estim Creat Clear Calc 75.9 12/13/24 08:20 Estimated GFR > 60 12/13/24 08:20 POC Glucose 129 mg/dL (60-115) H 12/14/24 07:08 Random Glucose 146 mg/dL (60-115) H 12/13/24 08:20 Lactic Acid 2.5 mmol/L (0.5-2.0) H* 12/12/24 09:57 Lactic Acid F/U @ 2Hr 2.0 mmol/L (0.5-2.0) 12/12/24 12:16 Calcium 9.3 mg/dL (8.4-10.2) D 12/13/24 08:20 Magnesium 1.7 mg/dL (1.6-2.6) 12/12/24 09:59 Total Bilirubin 0.3 mg/dL (0.0-1.0) 12/12/24 09:59 AST 62 U/L (5-37) H 12/12/24 09:59 ALT 23 U/L (0-40) 12/12/24 09:59 Alkaline Phosphatase 54 U/L (39-117) 12/12/24 09:59 Troponin I High Sens 17.0 ng/L (<3.5-35.0) 12/12/24 12:16 C-Reactive Protein 1.52 mg/dL (< or = 0.50) H 12/14/24 08:03 Total Protein 7.4 g/dL (6.5-8.0) 12/12/24 09:59 Albumin 3.5 g/dL (3.5-5.0) 12/12/24 09:59 Urine Color Yellow 12/12/24 10:13 Urine Appearance Clear 12/12/24 10:13 Urine pH 7.0 (5.0-9.0) 12/12/24 10:13 Ur Specific [place] 1.015 (1.005-1.025) 12/12/24 10:13 Urine Protein Trace mg/dL (Neg-Trace) 12/12/24 10:13 Urine Glucose (UA) Negative mg/dL (Negative) 12/12/24 10:13 Urine Ketones Negative mg/dL (Negative) 12/12/24 10:13 Urine Blood Negative (Negative) 12/12/24 10:13 Urine Nitrite Negative (Negative) 12/12/24 10:13 Ur Leukocyte Esterase Negative (Negative) 12/12/24 10:13 Urine Opiates Screen Not Detected (Not Detect) 12/12/24 10:13 Ur Buprenorphine Scrn Not Detected ng/mL (Not Detect) 12/12/24 10:13 Ur Oxycodone Screen Not Detected ng/mL (Not Detect) 12/12/24 10:13 Urine Methadone Screen Not Detected ng/mL (Not Detect) 12/12/24 10:13 Urine Fentanyl Screen Not Detected (Not Detect) 12/12/24 10:13 Ur Barbiturates Screen Not Detected (Not Detect) 12/12/24 10:13 Ur Phencyclidine Scrn Not Detected (Not Detect) 12/12/24 10:13 Ur Amphetamines Screen Not Detected (Not Detect) 12/12/24 10:13 U Benzodiazepines Scrn Not Detected (Not Detect) 12/12/24 10:13 Urine Cocaine Screen Not Detected (Not Detect) 12/12/24 10:13 U Marijuana (THC) Screen Not Detected (Not Detect) 12/12/24 10:13 Ethyl Alcohol < 10 mg/dL 12/12/24 09:59 Influenza Type A (PCR) NEGATIVE (Negative) 12/12/24 09:57 Influenza Type B (PCR) NEGATIVE (Negative) 12/12/24 09:57 RSV RNA Qual (PCR) NEGATIVE (Negative) 12/12/24 09:57 SARS-CoV-2 RNA (RT-PCR) POSITIVE (Negative) A 12/12/24 09:[address] 12/12/24 10:20 IMPRESSION: No acute intracranial hemorrhage. Global cerebral atrophy. Small vessel occlusive disease. Acute stroke/nonhemorrhagic ischemia cannot be excluded. If clinical concern recommend non-IV contrast MRI brain. Polypoid right-sided paranasal sinus disease. Electronically signed by: Brayden Krishnamurthy MD 12/12/2024 11:05 AM EST RP Chest X-Ray 12/12/24 10:30 IMPRESSION: Clear lungs. Electronically signed by: Marbin Harrison MD 12/12/2024 10:43 AM EST RP Discharge Plan Discharge Anticipated Discharge Date/Time: 12/14/24 09:22 Patient Disposition: Home Health Service Discharge Diagnosis: hypoxia due to Covid-19 infection Referrals: Shaquille Gaston MD [Primary Care Provider] - 1 Week Discharge Medications: New dexamethasone 6 mg tablet 6 mg PO DAILY Qty: 7 0RF Continued buspirone 5 mg Tablet 10 mg PO BID levothyroxine 175 mcg Tablet 175 mcg PO Q48H acetaminophen 325 mg Tablet 650 mg PO Q4H PRN (Reason: Pain) trazodone 50 mg Tablet 50 mg PO BEDTIME dextrose [Glucose Gel] 40 % Gel 15 g PO Q15M PRN (Reason: low sugar) Rx Instructions: until symptoms of low blood sugar are controlled amlodipine 5 mg Tablet 5 mg PO DAILY divalproex 500 mg Tablet,Delayed Release (Dr/Ec) 1,500 mg PO BEDTIME aspirin 81 mg Tablet,Delayed Release (Dr/Ec) 81 mg PO DAILY magnesium hydroxide [Milk of Magnesia] 400 mg/5 mL Suspension 30 ml PO DAILY PRN (Reason: Constipation) cyanocobalamin (vitamin B-12) 500 mcg Tablet 500 mcg PO DAILY tamsulosin [Flomax] 0.4 mg Capsule 0.4 mg PO BEDTIME olanzapine 15 mg Tablet 15 mg PO BEDTIME albuterol sulfate [Ventolin HFA] 90 mcg/actuation Hfa Aerosol Inhaler 2 puff INHALATION Q6H PRN (Reason: Shortness Of Breath Or Wheezing) glipizide 5 mg Tablet 7.5 mg PO DAILY levothyroxine 112 mcg Tablet 112 mcg PO Q48H magnesium oxide 400 mg magnesium Tablet 400 mg PO BEDTIME Discharge Orders: Discharge Order (Routine); Ordered 12/14/24 Ordered By: Alpesh Shetty Diet: Advance to usual diet Activity on Discharge: As tolerated Stand Alone Forms: Patient Portal Discharge page Print Language: Chadian Care Plan Goals: recovery from Covid-19 Health Concerns: hypoxia due to Covid-19 infection Plan of Treatment: dexamethasone 6 mg daily for 7 days Please follow up with your primary care doctor within 1 week. Return to the hospital if you experience recurrent or worsening symptoms. Assessment: See Discharge Summary.
[2024-12-14 09:44] VITALS: BP 140/88
[2024-12-14] MEDS: Aspirin Enteric Coated 81 MG TABLET.DR PO (09:44)
[2024-12-14] MEDS: glipiZIDE 5 MG TABLET 7.5 MG PO (09:44)
[2024-12-14] MEDS: amLODIPine Besylate 5 MG TABLET PO (09:44)
[2024-12-14] MEDS: Cyanocobalamin (Vitamin B-12) 500 MCG TABLET PO (09:44)
[2024-12-14] MEDS: dexAMETHasone sod phosphate 4 MG/ML VIAL 6 MG IVPUSH (09:44)
[2024-12-14] MEDS: busPIRone HCl 10 MG TABLET PO (09:44)
[2024-12-14] MEDS: 0.9 % Sodium Chloride Flush 3 ML SYRINGE IVFLUSH (09:44)
--- NOTE | 2024-12-14 10:36 | W.MHC.F2F ---
Service Date Service Date: 12/14/24 Encounter Date of encounter: 12/14/24 Reasons for Services Signs and symptoms assessed: see PT evaluation 12/13/24 Reason for [facility]: medication management, medication treatment and teach disease management Reason for physical therapy: home safety and mobility, therapeutic exercises, gait/transfer training, assess need for DME, ADL training and energy conservation MD Overseeing Care: Shaquille Gaston Homebound: Leaving the home is medically contraindicated at this time without the asist of a device and/or another person due th the listed conditions above and below. Reason homebound: unsteady gait / fall risk, shortness of breath with minimal effort, cognitively impaired / unsafe and weakness related to hospital stay Certification: Based on the above findings, I certify that this patient is confined to the home and needs intermittent [facility] care, physical therapy and/or speech therapy, or continues to need occupational therapy. The patient is under my care, and I have initiated the establishment of the plan of care. The patient will be followed by a physician who will periodically review the plan of care. Time Spent With Patient Time: Total time managing care of this patient today ____ minutes.
--- NOTE | 2024-12-14 10:58 | MHC.CM.PN ---
Pt has been medically cleared for DC, he will go back [place] [facility] [place] [facility] [place] services from [facility]. Guardian, Jeri Oswald notified of DC via email.
[2024-12-14 11:28] LABS: Glucose, Whole Blood 212 mg/dL (60-115)
[2024-12-14 11:42] VITALS: BP 145/90; PULSE 80; RESP 20; TEMP 36.4; O2SAT 95
[2024-12-14] MEDS: Insulin Lispro 100 UNIT/ML 3 ML VIAL SUBCUT (12:28)
== END 2024-12-14 14:05 | disposition home or self-care (01) | DRG 177 ==
LOC: HO.ED 15:31 → HO.EDOVER 15:35 → HO.IMC 21:04
PROVIDERS: Hospitalist; Registered Nurse Emergency; Admitting Provider Student in an Organized Health Care Education/Training Program; Emergency Provider Emergency Medicine; PCP Internal Medicine; Visit Provider Family Medicine
DX: U07.1 COVID-19 (principal); G93.41 Metabolic encephalopathy; J96.01 Acute respiratory failure with hypoxia; E03.9 Hypothyroidism, unspecified; E11.9 Type 2 diabetes mellitus without complications; D64.9 Anemia, unspecified; N40.0 Benign prostatic hyperplasia without lower urinary tract symptoms; F25.9 Schizoaffective disorder, unspecified; Z20.822 Contact with and (suspected) exposure to COVID-19; Z79.82 Long term (current) use of aspirin; Z79.84 Long term (current) use of oral hypoglycemic drugs; Z79.890 Hormone replacement therapy; Z79.899 Other long term (current) drug therapy
CPT/HCPCS: 0241U; 36415; 70450; 71046; 80048; 80053; 80307; 81003; 82947; 83605; 83735; 84484; 85025; 85027; 85610; 86140; 87040; 93005; 97162; 99285; J0696; J1100; J1650; J7120

== ENCOUNTER → 2024-12-12 09:36 | Outpatient (BNV) | payer MEDICARE, SELFPAY | PROVIDERS: Emergency Provider Emergency Medicine; Visit Provider Radiology Diagnostic Radiology | DX: R41.82 Altered mental status, unspecified (principal); R53.1 Weakness | CPT/HCPCS: 71046 ==

== ENCOUNTER → 2024-12-12 09:36 | Outpatient (BNV) | payer MEDICARE, SELFPAY | PROVIDERS: Admitting Provider Student in an Organized Health Care Education/Training Program; Emergency Provider Emergency Medicine; Visit Provider Internal Medicine Cardiovascular Disease | DX: R94.31 Abnormal electrocardiogram [ECG] [EKG] (principal); R41.82 Altered mental status, unspecified | CPT/HCPCS: 93010 ==

== ENCOUNTER → 2024-12-12 15:02 | Outpatient (BNV) | payer MEDICARE, SELFPAY | PROVIDERS: Admitting Provider Student in an Organized Health Care Education/Training Program; Emergency Provider Emergency Medicine; Visit Provider Student in an Organized Health Care Education/Training Program | DX: J96.01 Acute respiratory failure with hypoxia (principal); U07.1 COVID-19 | CPT/HCPCS: 99223; 99232; 99239; G0180 ==